=== PATIENT | female | born 1945 | race Caucasian/White ===

== ENCOUNTER → 2018-11-02 | Outpatient (CLI) | payer OTHER ==
[~2018-11-02] MED LIST: ACIDOPHILUS1 EAC2 PO; ASPI325 PO; ASPI81CH PO; ASPI81EC; ASPI81EC PO; Advair Hfa 230-12 GM; Amiodarone HCl200 MG PO; CARV3.125 PO; CEFP200 PO; CHOL10002; CHOL10002 PO; CITA20 PO; CLOP75 PO; COLCHICINE0.6 MG PO; COLCRYS0.6 MG PO; DOCU100 PO; DOFE250 PO; Durezol5 ML; ELIQUIS2.5 MG PO; ELIQUIS5 MG PO; FAMO20 PO; FISH1000 PO; FLAX PO; FLONASE ALLERG9.9 ML NS; FURO20 PO; FURO40 PO; GUAI600T33 PO; HERBAL LAXATIVE PO; HYALURONIC ACI1 EACH PO; Hair, Skin & N1 EACH PO; IBUP600 PO; Keflex500 MG PO; Kristalose20 GM PO; LOSA25 PO; METHYLFOLATE PO; METO25ER PO; NITR.4SL SL; OMEG1CAP30; OMEG1CAP30 PO; OMEP20ER PO; Oxycodone HCl5 M1; POTCHL10ER PO; POTCHL20ER PO; PRED5 PO; PROBIOTIC & AC1 EACH PO; Pred Forte1 ML RIGHTEYE; Pred Mild5 ML RIGHTEYE; Pyridium200 MG PO; ROSU5 PO; Restoril15 MG PO; SERT25 PO; SERT50 PO; STRESS B-COMPL1 EACH PO; Senna Laxative8.6 MG PO; TEMA15 PO; TIZANIDINE HCL2 MG PO; Vitamin B Comple1 EA PO; Zanaflex2 M1 PO; Zofran Odt4 MG SL; Zofran Odt8 MG SL; [UNRECOGNIZED DRUG - OTHER]; [UNRECOGNIZED DRUG - OTHER]; [UNRECOGNIZED DRUG - OTHER] PO; [UNRECOGNIZED DRUG - OTHER] PO
== END | disposition home or self-care (01) ==
LOC: LAB SHORT 18:40 → LAB 18:40
DX: R30.0 Dysuria (principal)
CPT/HCPCS: 87077; 87086; 87186

== ENCOUNTER 2019-02-13 18:47 | Emergency (ER) | payer OTHER ==
[~2019-02-13] VITALS: Ht 157.5 cm; Wt 87.5 kg
[~2019-02-13 18:47] MED LIST changes: -DOFE250 PO
[2019-02-13] MEDS ORDERED: LOSA25 PO (21:57)
[2019-02-13] MEDS ORDERED: LORA.5 PO (21:58)
[2019-02-13] MEDS ORDERED: DOFE250 PO (22:00)
[2019-02-13] MEDS ORDERED: WARF5 PO (22:00)
[2019-02-13] MEDS ORDERED: FURO40 PO (22:01)
[2019-02-13] MEDS ORDERED: POTCHL10ER PO (22:01)
[2019-02-13] MEDS ORDERED: Isosorbide Mono30 MG PO (22:02)
[2019-02-13] MEDS ORDERED: SERT25 PO (22:03)
[2019-02-13] MEDS ORDERED: Zofran8 MG PO (22:14)
[2019-02-13] MEDS ORDERED: Percocet 5-3251 EACH PO (22:14)
== END 2019-02-13 22:45 | disposition home or self-care (01) ==
LOC: ER 18:47
DX: S52.501A Unspecified fracture of the lower end of right radius, initial encounter for closed fracture (principal); I25.2 Old myocardial infarction; I50.9 Heart failure, unspecified; I48.91 Unspecified atrial fibrillation; Z88.5 Allergy status to narcotic agent; Z88.6 Allergy status to analgesic agent; Z88.8 Allergy status to other drugs, medicaments and biological substances; Z91.048 Other nonmedicinal substance allergy status; Z79.899 Other long term (current) drug therapy; Z79.52 Long term (current) use of systemic steroids; Z86.711 Personal history of pulmonary embolism; Z87.891 Personal history of nicotine dependence; W19.XXXA Unspecified fall, initial encounter
CPT/HCPCS: 25605; 73110; 76000; 96374-59; 96375-59; 96376-59; 99152; 99283-25; A9270; A9270-GY; J1170; J2405; J2704; J7030

== ENCOUNTER 2019-05-08 11:54 | Emergency (ER) | payer OTHER ==
[~2019-05-08] VITALS: Ht 160 cm; Wt 87.1 kg
[~2019-05-08 11:54] MED LIST changes: +DOFE250 PO; +Isosorbide Mono30 MG PO; +LORA.5 PO; +Percocet 5-3251 EACH PO; +WARF5 PO; +Zofran8 MG PO
[2019-05-08 13:48] LABS: BASOPHILS ABSOLUTE AUTO 0.04 K/mm3 (0.00-0.23); BASOPHILS PERCENT AUTO 1 % (0-2); EOSINOPHILS ABSOLUTE AUTO 0.13 K/mm3 (0.00-0.68); EOSINOPHILS PERCENT AUTO 2 % (0-6); Hemoglobin 12.5 g/dL (11.5-16.0); IMMATURE GRAN ABSOLUTE AUTO 0.02 K/mm3 (0.00-0.10); IMMATURE GRAN PERCENT AUTO 0 % (0-1); LYMPHOCYTES ABSOLUTE AUTO 1.48 K/mm3 (0.84-5.20); LYMPHOCYTES PERCENT AUTO 22 % (21-46); MONOCYTES ABSOLUTE AUTO 0.67 K/mm3 (0.16-1.47); MONOCYTES PERCENT AUTO 10 % (4-13); Mean Corpuscular HGB 30.8 pg (26.0-34.0); Mean Corpuscular HGB Conc 32.9 g/dL (31.5-36.5); Mean Corpuscular Volume 94 fL (80-100); Mean Platelet Volume 12.4 fL (9.1-12.4); NEUTROPHILS ABSOLUTE AUTO 4.33 K/mm3 (1.96-9.15); NEUTROPHILS PERCENT AUTO 65 % (41-73); Platelet Count 206 K/mm3 (150-400); RDW Coefficient Variation 14.4 % (11.7-14.2); RDW Standard Deviation 49.7 fL (35.1-46.3); Red Blood Cell Count 4.06 M/mm3 (3.80-5.20); White Blood Cell Count 6.67 K/mm3 (4.00-11.30)
[2019-05-08] MEDS ORDERED: Prednisone20 MG PO (13:59)
[2019-05-08] MEDS ORDERED: ALBU2.5V5 INH (13:59)
[2019-05-08 14:07] LABS: Alanine Aminotransfer (ALT/SGP 23 U/L (12-78); Albumin, Blood 3.7 g/dL (3.4-5.0); Albumin/Globulin Ratio 1.1 (0.8-1.8); Alk Phos 58 U/L (50-136); Anion Gap 8 mmol/L (6-16); Aspartate Aminotrans (AST/SGOT 21 U/L (12-37); Bilirubin, Total 0.5 mg/dL (0.1-1.0); Blood Urea Nitrogen 15 mg/dL (8-24); Bun/Creatinine Ratio 25.2 (12.0-20.0); CO2, Blood 23 mmol/L (21-32); Calcium, Blood 8.7 mg/dL (8.5-10.1); Chloride, Blood 107 mmol/L (98-108); Globulin, Blood 3.3 g/dL (2.2-4.0); Glomerular Filtration Rate >60 (60-); Glucose, Blood 118 mg/dL (70-99); Potassium, Blood 4.1 mmol/L (3.5-5.5); Sodium, Blood 138 mmol/L (136-145); Troponin I <0.015 ng/mL (0.000-0.040)
[2019-05-08 15:01] LABS: International Normalized Ratio 1.3; Prothrombin Time Results 13.5 Sec (9.7-11.5)
== END 2019-05-08 16:35 | disposition home or self-care (01) ==
LOC: ER 11:54
PROVIDERS: Emergency Medicine
DX: J44.1 Chronic obstructive pulmonary disease with (acute) exacerbation (principal); I25.2 Old myocardial infarction; I50.9 Heart failure, unspecified; I48.91 Unspecified atrial fibrillation; Z88.8 Allergy status to other drugs, medicaments and biological substances; Z88.5 Allergy status to narcotic agent; Z88.1 Allergy status to other antibiotic agents; Z79.899 Other long term (current) drug therapy; Z79.01 Long term (current) use of anticoagulants
CPT/HCPCS: 36415; 71046; 80053; 84484; 85025; 85610; 93005; 93010; 99285-25

== ENCOUNTER → 2019-05-13 | Outpatient (CLI) | payer OTHER ==
[~2019-05-13] MED LIST changes: +ALBU2.5V5 INH; +Prednisone20 MG PO
[2019-05-16 07:08] LABS: HPV 16 Negative (Negative); HPV 18 Negative (Negative); HPV OTHER HR TYPES Negative (Negative)
== END | disposition home or self-care (01) ==
LOC: LAB SHORT 17:52 → LAB 17:52
PROVIDERS: Nurse Practitioner Women's Health
DX: Z12.4 Encounter for screening for malignant neoplasm of cervix (principal); Z91.89 Other specified personal risk factors, not elsewhere classified
CPT/HCPCS: 87624; G0123

== ENCOUNTER 2019-07-05 04:40 | Emergency (ER) | payer OTHER ==
[~2019-07-05] VITALS: Ht 160 cm; Wt 87.1 kg
[2019-07-05] MEDS ORDERED: JANTOVEN PO (05:25)
[2019-07-05] MEDS ORDERED: Jantoven10 MG PO (05:25)
[2019-07-05] MEDS ORDERED: VITAMIN D-32000 UNIT PO (05:28)
[2019-07-05 06:00] LABS: International Normalized Ratio 1.62; Prothrombin Time Results 16.4 Sec (9.7-11.5)
== END 2019-07-05 05:59 | disposition home or self-care (01) ==
LOC: ER 04:40
PROVIDERS: Emergency Medicine
DX: H11.31 Conjunctival hemorrhage, right eye (principal); H11.421 Conjunctival edema, right eye; I25.2 Old myocardial infarction; I50.9 Heart failure, unspecified; I48.91 Unspecified atrial fibrillation; Z86.711 Personal history of pulmonary embolism; Z87.891 Personal history of nicotine dependence; Z88.8 Allergy status to other drugs, medicaments and biological substances; Z88.5 Allergy status to narcotic agent; Z88.1 Allergy status to other antibiotic agents; Z79.899 Other long term (current) drug therapy; Z79.01 Long term (current) use of anticoagulants
CPT/HCPCS: 85610; 99283

== ENCOUNTER 2019-08-21 12:30 | Emergency (ER) | payer OTHER ==
[~2019-08-21] VITALS: Ht 157.5 cm; Wt 89.8 kg
[~2019-08-21 12:30] MED LIST changes: +JANTOVEN PO; +Jantoven10 MG PO; +VITAMIN D-32000 UNIT PO
[2019-08-21 13:44] LABS: International Normalized Ratio 2.16; Prothrombin Time Results 22.1 Sec (9.7-11.5)
[2019-08-21 13:45] LABS: Calcium, Ionized (POC) 1.15 mmol/L (1.10-1.46); Chloride (POC) 97 mmol/L (98-108); Creatinine (POC) 0.6 mg/dL (0.6-1.0); Glucose (ISTAT POC) 96 mg/dL (70-99); Hemoglobin (POC) 14.3 g/dL (12.0-16.0); Potassium (POC) 4.1 mmol/L (3.5-5.5); Sodium (POC) 133 mmol/L (135-148); Total CO2 (POC) 26 mmol/L (21-32)
[2019-08-21] MEDS ORDERED: NEO-SYNEPHRINE15 M1 (18:38)
== END 2019-08-21 14:33 | disposition home or self-care (01) ==
LOC: ER 12:30
PROVIDERS: Emergency Medicine
DX: R04.0 Epistaxis (principal); I48.91 Unspecified atrial fibrillation; I25.2 Old myocardial infarction; I50.9 Heart failure, unspecified; Z79.01 Long term (current) use of anticoagulants; Z86.711 Personal history of pulmonary embolism; Z87.891 Personal history of nicotine dependence
CPT/HCPCS: 30901; 80047; 85014; 85610; 99283-25

== ENCOUNTER 2019-11-07 04:21 | Observation (INO) | payer OTHER ==
[~2019-11-07] VITALS: Ht 170.2 cm; Wt 88.5 kg
[~2019-11-07 04:21] MED LIST changes: +NEO-SYNEPHRINE15 M1
[2019-11-07 04:36] LABS: BASOPHILS ABSOLUTE AUTO 0.04 K/mm3 (0.00-0.23); BASOPHILS PERCENT AUTO 1 % (0-2); EOSINOPHILS ABSOLUTE AUTO 0.15 K/mm3 (0.00-0.68); EOSINOPHILS PERCENT AUTO 2 % (0-6); Hematocrit 41.9 % (33.0-51.0); Hemoglobin 13.2 g/dL (11.5-16.0); IMMATURE GRAN ABSOLUTE AUTO 0.02 K/mm3 (0.00-0.10); IMMATURE GRAN PERCENT AUTO 0 % (0-1); LYMPHOCYTES PERCENT AUTO 29 % (21-46); MONOCYTES ABSOLUTE AUTO 0.66 K/mm3 (0.16-1.47); MONOCYTES PERCENT AUTO 10 % (4-13); Mean Corpuscular HGB 29.5 pg (26.0-34.0); Mean Corpuscular HGB Conc 31.5 g/dL (31.5-36.5); Mean Corpuscular Volume 94 fL (80-100); Mean Platelet Volume 11.6 fL (9.1-12.4); NEUTROPHILS ABSOLUTE AUTO 4.09 K/mm3 (1.96-9.15); NEUTROPHILS PERCENT AUTO 59 % (41-73); Platelet Count 171 K/mm3 (150-400); RDW Coefficient Variation 13.4 % (11.7-14.2); RDW Standard Deviation 45.6 fL (35.1-46.3); Red Blood Cell Count 4.48 M/mm3 (3.80-5.20); White Blood Cell Count 6.96 K/mm3 (4.00-11.30)
[2019-11-07 04:56] LABS: Troponin I 0.061 ng/mL (0.000-0.040)
[2019-11-07 04:57] LABS: Alanine Aminotransfer (ALT/SGP 26 U/L (12-78); Albumin, Blood 3.8 g/dL (3.4-5.0); Albumin/Globulin Ratio 1.1 (0.8-1.8); Alk Phos 65 U/L (50-136); Anion Gap 7 mmol/L (6-16); Aspartate Aminotrans (AST/SGOT 25 U/L (12-37); Bilirubin, Total 0.5 mg/dL (0.1-1.0); Blood Urea Nitrogen 16 mg/dL (8-24); Bun/Creatinine Ratio 25.2 (12.0-20.0); CO2, Blood 27 mmol/L (21-32); Calcium, Blood 9.1 mg/dL (8.5-10.1); Chloride, Blood 107 mmol/L (98-108); Creatinine, Blood 0.64 mg/dL (0.40-1.00); Globulin, Blood 3.4 g/dL (2.2-4.0); Glomerular Filtration Rate >60 (60-); Glucose, Blood 98 mg/dL (70-99); Sodium, Blood 141 mmol/L (136-145); Total Protein, Blood 7.2 g/dL (6.4-8.2)
[2019-11-07] MEDS ORDERED: FUROSEMIDE40 MG PO (05:24)
[2019-11-07] MEDS ORDERED: LOSARTAN POTASS25 M2 PO (05:24)
[2019-11-07] MEDS ORDERED: DOFETILIDE250 MCG PO (05:25)
[2019-11-07] MEDS ORDERED: ISOSORBIDE MONO30 MG PO (05:25)
[2019-11-07] MEDS ORDERED: ZOLOFT50 MG PO (05:25)
[2019-11-07] MEDS ORDERED: Jantoven5 MG PO (05:25)
[2019-11-07] MEDS ORDERED: K-Dur10 MEQ (05:25)
[2019-11-07] MEDS ORDERED: NITR.4SL SL (05:26)
[2019-11-07 05:45] LABS: International Normalized Ratio 1.33
--- NOTE | 2019-11-07 06:28 | NUR ---
After receiving a call-back, I visit patient in ER Rm 3. Pateint is grieving appropriately the of her , Ed, who of a heart attack this morning. While EMT were tending to patient's , the patient started having chest pains. Patient tells me she is overwhelmed and and she cries as she recalls all that she loves about her . I listen empathically, normalize patient's experience and provide grief support, conduct a life review, pastoral herb counselor and prayer. Patient responds well and shows signs of improved peace. I will continue to remain available to patient and family.
--- NOTE | 2019-11-07 08:01 | NUR ---
SHIFT SUMMARY PT A&O; CAME FROM ER VIA STRETCHER AND SELF TRANSFERED TO BED; PT STATES SHE IS NOT CURRENTLY EXPERIENCING CHEST PAIN; NITRO BID PASTE IN PLACE; PT STATES IT DOES NOT FEEL THE SAME HER PAST DE; O2 SATS >93 ON RA; LUNG SOUNDS CLEAR; NO EDEMA NOTED; HER SPOUSE CODED AT HOME THIS AM AT 0315 AND SHE CALLED 911; HAD BY THE TIME AMBULANCE ARRIVED; SHE HERSELF WAS HAVING CHEST PAIN, AND ADDITIONAL AMBULANCE WAS CALLED FOR HER; SHE HAS NUMEROUS CONCERNS FOR SPOUSE'S ARRANGEMENTS AND CONCERNS WITH HER INSURANCE FOR HER HOSPITAL STAY; CALL LIGHT IN REACH; BED IN LOWEST POSITION; REPORT GIVEN TO DAY SHIFT RN.
--- NOTE | 2019-11-07 08:22 | NUR ---
AM NOTE... ASSUMED CARE OF PT APROX 0700, PT IS A&Ox4 AND IND/SBA IN THE ROOM. PT WAS ADMITTED FOR CHEST PAIN. PT'S LAST NIGHT AND EMS BROUGHT HER IN FOR CHEST PAIN. PT'S VS STABLE AT THIS TIME, PT C/O SLIGHT CHEST PAIN OF 2/10 AND SAID THE MORPHINE HELPED A LOT. L/S CLEAR IN THE UPPER SLIGHT COARSENESS HEARD IN THE BASES. BT PRESENT AND HYPERACTIVE ABD SOFT AND NONTENDER TO PALP. PT IS VERY TEARFUL AND ANXIOUS AT TIMES ABOUT HER PASSING. CALL LIGHT IN REACH WILL CONTINUE TO MONITOR.
--- NOTE | 2019-11-07 10:23 | NUR ---
Echocardiogram using 0.75mL of Definity contrast completed by Risa Bustos.
--- NOTE | 2019-11-07 13:20 | NUR ---
I checked back in with patient to let her know I am still in the area and available. Patient informs me that both her son from [place] and her sister from [place] were on there way to visit her. Patient tells me that she is nervous about the upcoming procedure and has her head full of all the details and fears surrounding the of her this morning. I listen empathically and provide a calming presence and companionship. Patient responds well and shows signs of a greater peace. I will continue to remain available to patient and family.
== END 2019-11-07 15:32 | disposition short-term general hospital (02) ==
LOC: ER 04:21 → PCU 04:22
PROVIDERS: Emergency Medicine; ADMIT Family Medicine
DX: I21.4 Non-ST elevation (NSTEMI) myocardial infarction (principal); I16.0 Hypertensive urgency; I48.0 Paroxysmal atrial fibrillation; I25.10 Atherosclerotic heart disease of native coronary artery without angina pectoris; Z88.1 Allergy status to other antibiotic agents; Z88.5 Allergy status to narcotic agent; Z88.8 Allergy status to other drugs, medicaments and biological substances; Z91.041 Radiographic dye allergy status; Z79.899 Other long term (current) drug therapy; Z87.891 Personal history of nicotine dependence
CPT/HCPCS: 36415; 71045; 80053; 84443; 84484; 85025; 85347; 85610; 93005; 93010; 93458; 93571; 96375; 99152; 99153; C1769; C1887; C1894; C8929; G0378; J1644; J2060; J2250; J2270; J2405; J2930; J3010; J7030; Q0163; Q9957; Q9967

== ENCOUNTER 2020-01-11 16:55 | Inpatient (IN) | payer OTHER ==
[~2020-01-11] VITALS: Ht 165.1 cm; Wt 85.4 kg
[~2020-01-11 16:55] MED LIST changes: +DOFETILIDE250 MCG PO; +FUROSEMIDE40 MG PO; +ISOSORBIDE MONO30 MG PO; +Jantoven5 MG PO; +K-Dur10 MEQ PO; +LOSARTAN POTASS25 M2 PO; +ZOLOFT50 MG PO
[2020-01-11 17:19] LABS: BASOPHILS ABSOLUTE AUTO 0.04 K/mm3 (0.00-0.23); BASOPHILS PERCENT AUTO 1 % (0-2); EOSINOPHILS ABSOLUTE AUTO 0.14 K/mm3 (0.00-0.68); EOSINOPHILS PERCENT AUTO 2 % (0-6); Hematocrit 37.6 % (33.0-51.0); Hemoglobin 12.1 g/dL (11.5-16.0); IMMATURE GRAN ABSOLUTE AUTO 0.02 K/mm3 (0.00-0.10); IMMATURE GRAN PERCENT AUTO 0 % (0-1); LYMPHOCYTES ABSOLUTE AUTO 1.68 K/mm3 (0.84-5.20); LYMPHOCYTES PERCENT AUTO 25 % (21-46); MONOCYTES ABSOLUTE AUTO 0.77 K/mm3 (0.16-1.47); MONOCYTES PERCENT AUTO 11 % (4-13); Mean Corpuscular HGB 29.8 pg (26.0-34.0); Mean Corpuscular HGB Conc 32.2 g/dL (31.5-36.5); Mean Corpuscular Volume 93 fL (80-100); Mean Platelet Volume 12.3 fL (9.1-12.4); NEUTROPHILS ABSOLUTE AUTO 4.12 K/mm3 (1.96-9.15); NEUTROPHILS PERCENT AUTO 61 % (41-73); Platelet Count 174 K/mm3 (150-400); RDW Coefficient Variation 14.6 % (11.7-14.2); Red Blood Cell Count 4.06 M/mm3 (3.80-5.20); White Blood Cell Count 6.77 K/mm3 (4.00-11.30)
[2020-01-11 17:43] LABS: International Normalized Ratio 1.6; Prothrombin Time Results 16.7 Sec (9.7-11.5)
[2020-01-11 17:46] LABS: Anion Gap 8 mmol/L (6-16); Blood Urea Nitrogen 12 mg/dL (8-24); Bun/Creatinine Ratio 16.2 (12.0-20.0); CO2, Blood 24 mmol/L (21-32); Calcium, Blood 8.8 mg/dL (8.5-10.1); Chloride, Blood 106 mmol/L (98-108); Creatinine, Blood 0.74 mg/dL (0.40-1.00); Glomerular Filtration Rate >60 (60-); Glucose, Blood 129 mg/dL (70-99); Potassium, Blood 3.7 mmol/L (3.5-5.5); Sodium, Blood 138 mmol/L (136-145); Troponin I <0.015 ng/mL (0.000-0.040)
[2020-01-11] MEDS ORDERED: PLAVIX75 MG PO (19:32)
[2020-01-11] MEDS ORDERED: ALPRAZOLAM0.5 M1 PO (19:51)
--- NOTE | 2020-01-11 22:00 | NUR ---
CARDIOVVERSION/CARDIOLOGY IN ROOM 2129: PT ARRIVED TO ROOM FROM ED ABLE TO STAND AND TRANSFER TO BED. DR DAVIDSON IN ROOM APPROX 5 MIN AFTER ARRIVAL TO DISCUSS PLAN W/ PT. PT REMAINS IN AFIB 120'S ON TELE AND C/O CHEST PRESSURE. AT THIS TIME DR DAVIDSON RECOMENDING CARDIOVERSION. PT AGREEABLE TO PROCEDURE AND ROOM SET UP FOR CARDIOVERSION. 2139: MANAGER COST, PRIMARY RN, RT, AND DR DAVIDSON IN ROOM W/ CRASH CART, AND SUCTION SET UP. PADS APPLIED TO PT AND PROCEDURE EXPLAINED. 2144: TIMEOUT TAKEN TO CHECK PT NAME AND AND CHECK MEDICATIONS AND READINESS OF STAFF. 2147: VERSED AND FENTANYL GIVEN FOR SEDATION. SEE EMAR FOR TIMES. 2149: RT PLACED PT ON 5LNC D/T SHALLOW RESP W/ SATS <88%. SATS UP TO 94% 2151: PT FULLY SEDATED, NOT AROUSABLE TO VERBAL. SHOCK DELIVERED AT 200JULES. 2153: SINUS RHYTHYM CONFIRMED ON TELE. 2199: PT WAKING TO VERBAL, NO LONGER ON NC, SATS >95% ON RA. PT AWAKE AND AOX3 AND DROWSY, REPORTS DOES NOT REMEBER CARDIOVERSION. 5: PT AOX4 ABLE TO STAND AND USE BSC W/ SBA. REPORTING CHEST PRESSURE GONE. PT NOW RESTING IN BED COMFORTABLY WITH CALL LIGHT IN REACH.
[2020-01-11] MEDS ORDERED: GENPREOPSU RIGHTEYE (22:22)
[2020-01-11] MEDS ORDERED: REFRESH CELLUV1 EACH BOTHEYES (22:25)
[2020-01-12 04:22] LABS: International Normalized Ratio 1.72; Prothrombin Time Results 17.8 Sec (9.7-11.5)
--- NOTE | 2020-01-12 05:31 | NUR ---
SHIFT SUMMARY PT AWAKE IN ROOM RESTING COMFORTABLY AT THIS TIME. PT ARRIVED FROM ED AND WAS MET BY CARDIO IN ROOM. DECISION WAS MADE TO CARDIOVERT IN ROOM WITH SOFTWOOD FALLER. SEE PREVIOUS NOTES. PT CONVERTED TO SINUS RHYTHYM, REMAINED SINUS GALDINO T/O NIGHT. PT REPORTED ALL CP GONE. PT ABLE TO STAND AND AMBULATE TO RR W/O ASSIST. RESP EVEN UNLABORED ON RA W/ SATS >92%. PT DENIED OTHER NEEDS. CALL LIGHT IN REACH.
--- NOTE | 2020-01-12 09:43 | NUR ---
Pt is hoping to go home today. Requested to wait for a bath\shower until the DR rounds.
--- NOTE | 2020-01-12 13:11 | NUR ---
[facility]HR[facility] HOME PT DISCHARGED HOME. PT AMBULATED OUT TO SISTER. REFUSED W/C. IV LEFT WRIST REMOVED WITH CANNULA INTACT. PRESSURE DRESSING APPLIED AND PRESSURE HELD. NO BLEEDING NOTED. CONTINUE POT.
== END 2020-01-12 13:11 | disposition home or self-care (01) | DRG 309 ==
LOC: ER 16:55 → PCU 16:56
PROVIDERS: Student in an Organized Health Care Education/Training Program; ADMIT Internal Medicine
DX: I48.92 Unspecified atrial flutter (principal); I50.32 Chronic diastolic (congestive) heart failure; I34.0 Nonrheumatic mitral (valve) insufficiency; I11.0 Hypertensive heart disease with heart failure; I25.10 Atherosclerotic heart disease of native coronary artery without angina pectoris; I48.0 Paroxysmal atrial fibrillation; I25.2 Old myocardial infarction; E78.5 Hyperlipidemia, unspecified; Z86.711 Personal history of pulmonary embolism; Z66 Do not resuscitate; I73.9 Peripheral vascular disease, unspecified; Z88.1 Allergy status to other antibiotic agents; Z88.5 Allergy status to narcotic agent; Z88.8 Allergy status to other drugs, medicaments and biological substances; Z79.01 Long term (current) use of anticoagulants; Z79.899 Other long term (current) drug therapy
CPT/HCPCS: 36415; 71045; 80048; 83735; 84484; 85025; 85610; 92960; 93005; 93010; 96374; 96375; 99152; 99285-25; A9270-GY; J0282; J2250; J3010; J7030

== ENCOUNTER 2020-03-04 20:23 | Inpatient (IN) | payer OTHER ==
[~2020-03-04] VITALS: Ht 157.5 cm; Wt 85.0 kg
[~2020-03-04 20:23] MED LIST changes: +ALPRAZOLAM0.5 M1 PO; +GENPREOPSU RIGHTEYE; +PLAVIX75 MG PO; -VITAMIN D-32000 UNIT PO; -ZOLOFT50 MG PO
[2020-03-04] MEDS ORDERED: AMLO5 PO (20:44)
[2020-03-04 21:01] LABS: BASOPHILS ABSOLUTE AUTO 0.04 K/mm3 (0.00-0.23); BASOPHILS PERCENT AUTO 1 % (0-2); EOSINOPHILS ABSOLUTE AUTO 0.11 K/mm3 (0.00-0.68); EOSINOPHILS PERCENT AUTO 2 % (0-6); Hematocrit 39.8 % (33.0-51.0); Hemoglobin 12.9 g/dL (11.5-16.0); IMMATURE GRAN ABSOLUTE AUTO 0.02 K/mm3 (0.00-0.10); IMMATURE GRAN PERCENT AUTO 0 % (0-1); LYMPHOCYTES ABSOLUTE AUTO 1.59 K/mm3 (0.84-5.20); LYMPHOCYTES PERCENT AUTO 23 % (21-46); MONOCYTES ABSOLUTE AUTO 0.61 K/mm3 (0.16-1.47); MONOCYTES PERCENT AUTO 9 % (4-13); Mean Corpuscular HGB 29.7 pg (26.0-34.0); Mean Corpuscular HGB Conc 32.4 g/dL (31.5-36.5); Mean Corpuscular Volume 92 fL (80-100); Mean Platelet Volume 11.7 fL (9.1-12.4); NEUTROPHILS ABSOLUTE AUTO 4.46 K/mm3 (1.96-9.15); NEUTROPHILS PERCENT AUTO 65 % (41-73); Platelet Count 192 K/mm3 (150-400); RDW Coefficient Variation 13.8 % (11.7-14.2); RDW Standard Deviation 46.9 fL (35.1-46.3); Red Blood Cell Count 4.34 M/mm3 (3.80-5.20); White Blood Cell Count 6.83 K/mm3 (4.00-11.30)
[2020-03-04 21:18] LABS: International Normalized Ratio 1.46; Prothrombin Time Results 15.3 Sec (9.7-11.5)
[2020-03-04 21:22] LABS: Alanine Aminotransfer (ALT/SGP 24 U/L (12-78); Albumin, Blood 3.9 g/dL (3.4-5.0); Albumin/Globulin Ratio 1.2 (0.8-1.8); Alk Phos 68 U/L (50-136); Anion Gap 6 mmol/L (6-16); Aspartate Aminotrans (AST/SGOT 25 U/L (12-37); Bilirubin, Total 0.6 mg/dL (0.1-1.0); Blood Urea Nitrogen 24 mg/dL (8-24); Bun/Creatinine Ratio 32.8 (12.0-20.0); CO2, Blood 25 mmol/L (21-32); Chloride, Blood 104 mmol/L (98-108); Creatinine, Blood 0.73 mg/dL (0.40-1.00); Globulin, Blood 3.3 g/dL (2.2-4.0); Glomerular Filtration Rate >60 (60-); Glucose, Blood 124 mg/dL (70-99); Potassium, Blood 3.9 mmol/L (3.5-5.5); Sodium, Blood 135 mmol/L (136-145); Total Protein, Blood 7.2 g/dL (6.4-8.2); Troponin I <0.015 ng/mL (0.000-0.040)
[2020-03-04 23:50] LABS: Magnesium, Blood 2.3 mg/dL (1.6-2.4)
[2020-03-05] MEDS ORDERED: CLOP75 PO (02:30)
[2020-03-05] MEDS ORDERED: PRED FORTE5 ML RIGHTEYE (02:30)
[2020-03-05] MEDS ORDERED: NITR.4SL SL (02:31)
[2020-03-05 05:07] LABS: BASOPHILS ABSOLUTE AUTO 0.04 K/mm3 (0.00-0.23); BASOPHILS PERCENT AUTO 1 % (0-2); EOSINOPHILS ABSOLUTE AUTO 0.11 K/mm3 (0.00-0.68); EOSINOPHILS PERCENT AUTO 2 % (0-6); Hematocrit 38.4 % (33.0-51.0); Hemoglobin 12.4 g/dL (11.5-16.0); IMMATURE GRAN ABSOLUTE AUTO 0.02 K/mm3 (0.00-0.10); IMMATURE GRAN PERCENT AUTO 0 % (0-1); LYMPHOCYTES ABSOLUTE AUTO 1.89 K/mm3 (0.84-5.20); LYMPHOCYTES PERCENT AUTO 33 % (21-46); MONOCYTES ABSOLUTE AUTO 0.58 K/mm3 (0.16-1.47); MONOCYTES PERCENT AUTO 10 % (4-13); Mean Corpuscular HGB 29.5 pg (26.0-34.0); Mean Corpuscular HGB Conc 32.3 g/dL (31.5-36.5); Mean Corpuscular Volume 91 fL (80-100); NEUTROPHILS ABSOLUTE AUTO 3.05 K/mm3 (1.96-9.15); NEUTROPHILS PERCENT AUTO 54 % (41-73); Platelet Count 173 K/mm3 (150-400); RDW Coefficient Variation 13.7 % (11.7-14.2); RDW Standard Deviation 46.5 fL (35.1-46.3); White Blood Cell Count 5.69 K/mm3 (4.00-11.30)
[2020-03-05 05:29] LABS: Alanine Aminotransfer (ALT/SGP 21 U/L (12-78); Albumin, Blood 3.5 g/dL (3.4-5.0); Albumin/Globulin Ratio 1.2 (0.8-1.8); Alk Phos 57 U/L (50-136); Anion Gap 5 mmol/L (6-16); Aspartate Aminotrans (AST/SGOT 16 U/L (12-37); Bilirubin, Total 0.5 mg/dL (0.1-1.0); Blood Urea Nitrogen 17 mg/dL (8-24); Bun/Creatinine Ratio 28.5 (12.0-20.0); CO2, Blood 25 mmol/L (21-32); CPK Creatine Kinase 76 U/L (26-193); Calcium, Blood 8.5 mg/dL (8.5-10.1); Chloride, Blood 109 mmol/L (98-108); Globulin, Blood 2.9 g/dL (2.2-4.0); Glomerular Filtration Rate >60 (60-); Glucose, Blood 103 mg/dL (70-99); Sodium, Blood 139 mmol/L (136-145); Total Protein, Blood 6.4 g/dL (6.4-8.2); Troponin I 0.133 ng/mL (0.000-0.040)
--- NOTE | 2020-03-05 05:40 | NUR ---
SHIFT SUMMARY PT WAS A NEW ADMIT DURING THE NIGHT, ARRIVING ON THE FLOOR AT 0042. SHE WAS ADMITTED FOR CHEST PAIN, AND WAS CARDIOVERTED FROM AFIB WITH RVR TO SINUS BRADYCARDIA. PT HAS BEEN SB IN THE 50S SINCE ADMISSION TO THE FLOOR, PER TELE MANAGER PROJECT. VITAL SIGNS OTHERWISE STABLE. THIS RN ATTEMPTED TO INFUSE IV K+, BUT PT WAS UNABLE TO TOLERATE INFUSION AND BEGAN REPORTING CHEST PAIN. THE IV WAS DC'D AT THAT TIME AND HOSPITALIST DR ANDREA INFORMED. HOSPITALIST ORDERED THE SAME DOSE OF PO K+, WHICH PT WAS ABLE TO TAKE. PT REPORTED PAIN WAS RELIEVED WITH THE K+ DC'D. NO OTHER COMPLAINTS OF CHEST PAIN, NAUSEA OR SOB DURING THE NIGHT. PT IS ON A CONTINUOUS HEPARIN DRIP, CURRENTLY AT 13 U/KG/HR OR 16.9 ML/HR. PT IS ALSO RECEIVING NS @ 75 ML/HR X 1 BAG. NO OTHER ACUTE CHANGES IN PT CONDITION NOTED. WILL CONTINUE TO MONITOR AND TREAT PER EMAR UNTIL HAND OFF TO DAY SHIFT RN.
[2020-03-05 14:06] LABS: Troponin I 0.059 ng/mL (0.000-0.040)
--- NOTE | 2020-03-05 16:58 | NUR ---
SHIFT SUMMARY PT WAS SEEN BY DR. CAZARES THIS MORNING WITH HIM REQUESTING HEPARIN TO BE TURNED OFF FOR AN ANGIOGRAM THIS AFTERNOON. MADE NPO AT THE TIME PER HIS ORDER WELL. FRIEND AT BEDSIDE THIS AFTERNOON. CALLED [facility] ASKING FOR UPDATE OF WHEN PROCEDURE TO BE COMPLETED AND WAS INFORMED IT MAY BE TOMORROW RATHER THAN TODAY AND I WOULD BE KEPT INFORMED. PT AWARE OF POTENTIAL DELAY. HAS BEEN TEARFUL AT TIMES TODAY WITH CURRENT PERSONAL HEALTH EVENTS.
[2020-03-06 02:38] LABS: Albumin, Blood 3.4 g/dL (3.4-5.0); Anion Gap 5 mmol/L (6-16); Blood Urea Nitrogen 11 mg/dL (8-24); CO2, Blood 26 mmol/L (21-32); Calcium, Blood 8.7 mg/dL (8.5-10.1); Chloride, Blood 109 mmol/L (98-108); Creatinine, Blood 0.58 mg/dL (0.40-1.00); Glomerular Filtration Rate >60 (60-); Glucose, Blood 95 mg/dL (70-99); Phosphorus, Blood 3.9 mg/dL (2.5-4.9); Potassium, Blood 3.8 mmol/L (3.5-5.5); Sodium, Blood 140 mmol/L (136-145)
--- NOTE | 2020-03-06 05:55 | NUR ---
SHIFT SUMMARY PT IS A 74 Y/O FEMALE, ADMITTED FOR PAROXYSMAL AFIB. SHE IS A&O X 4, ABLE TO AMBULATE INDEPENDENTLY. PT WAS CONVERTED FROM AFIB WITH RVR IN THE ED, AND HAS BEEN IN SB/NSR SINCE PER TELE PRODUCE RUNNER. VITAL SIGNS STABLE. PT DENIED ANY COMPLAINTS OF CHEST PAIN, NAUSEA OR SOB. SHE IS ON A CONTINUOUS HEPARIN DRIP, CURRENTLY AT 13 U/KG/HR OR 16.9 ML/HR. PT HAS BEEN NPO SINCE MIDNIGHT IN PREP FOR AN ANGIOGRAM TODAY. NO OTHER ACUTE CHANGES IN PT CONDITION NOTED. WILL CONTINUE TO MONITOR AND TREAT PER EMAR UNTIL HAND OFF TO DAY SHIFT RN.
--- NOTE | 2020-03-06 15:18 | NUR ---
1330-RECEIVED THIS PT FROM THE LIP OF SHANK CUTTER. PT HAS TR BAND INFLATED WITH 11 CC R WRIST. R GROIN ACCESS SITE HAS A SHEATH IN PLACE. HAS A SLIGHT BLEEDING NOTED. SOFT PALPABLE GROIN. ITERATED PT RADIAL AND GROIN PRECAUTION. AFEBRILE. PATIENT COMPLAINTS OF CHEST AND JAW PAIN 10/21. R WRIST ACCESS SITE PULSE IS PALPABLE BUT BRUISING NOTED. CLEAR BREATH SOUNDS. PT IS BRADYCARDIC. 1425-DR. FOSTER CALLED BACK, UPDATED HER OF PT'S STATUS. ORDERS RECEIVED. 1531-PT IS STILL EATING LUNCH. NO CHANGES NOTED IN BOTH ACCESS SITES. STILL BRUISING NOTED IN THE TR BAND, R GROIN SLIGHT OOZE FROM SITE BUT HAS NOT PROGRESSED SINCE INITIAL ASSESSMENT. WILL DO ANOTHER PTT AT 1730.
--- NOTE | 2020-03-06 17:33 | NUR ---
SHIFT SUMMARY: SHEATH STILL IN PLACE. RADIAL TR BAND STILL INFLATED. NO CHANGES NOTED IN BOTH ACCESS SITES. AWAITING FOR PTT RESULTS.
--- NOTE | 2020-03-06 17:42 | NUR ---
SPOKE WITH DR. FOSTER, INFORMED HER PATIENT WANTED TO TALK TO HER. INFORMED HER TOO THAT SHEATH AND TR BAND STILL IN PLACE SINCE PTT IS OVER 134. WILL RECHECK PTT SOON.
--- NOTE | 2020-03-06 18:47 | NUR ---
DR. FOSTER AT BEDSIDE TALKING TO THE PATIENT
--- NOTE | 2020-03-06 19:21 | NUR ---
ASSUMED CARE OF PATIENT. PTT 36.1. TR BAND TO RIGHT WRIST IN PLACE WITH 11CC OF AIR IN BAND; FINGERS WARM WITH GOOD CAP REFILL. ARTERIAL SHEATH TO RIGHT FEMORAL IN PLACE WITH TEGADERM DRESSING; STRIKETHRU NOTED; GROIN SOFT; PALPABLE PEDALS; ABOVE ASSESSMENT PERFORMED WITH OFFGOING RN.
--- NOTE | 2020-03-06 20:15 | NUR ---
1928: TR BAND TO RIGHT WRIST; CAP REFILL < 3 SECONDS; HAND WARM. 2 CC AIR REMOVED. 1954: RIGHT WRIST SITE WNL; 3 CC AIR REMOVED. 2004: RIGHT WRIST SITE WNL; 3 CC AIR REMOVED. 2014: RIGHT WRIST SITE WNL; REMAINING 3 CC AIR REMOVED. TR BAND REMAINS IN PLACE FOR ONE HOUR.
[2020-03-07 03:25] LABS: Hematocrit 37.2 % (33.0-51.0); Hemoglobin 11.9 g/dL (11.5-16.0); Mean Corpuscular HGB 29.5 pg (26.0-34.0); Mean Corpuscular Volume 92 fL (80-100); Mean Platelet Volume 11.6 fL (9.1-12.4); Platelet Count 164 K/mm3 (150-400); RDW Coefficient Variation 13.8 % (11.7-14.2); Red Blood Cell Count 4.04 M/mm3 (3.80-5.20); White Blood Cell Count 8.57 K/mm3 (4.00-11.30)
[2020-03-07 03:44] LABS: Albumin, Blood 3.3 g/dL (3.4-5.0); Anion Gap 5 mmol/L (6-16); Blood Urea Nitrogen 16 mg/dL (8-24); CO2, Blood 25 mmol/L (21-32); Calcium, Blood 8.6 mg/dL (8.5-10.1); Chloride, Blood 108 mmol/L (98-108); Creatinine, Blood 0.62 mg/dL (0.40-1.00); Glomerular Filtration Rate >60 (60-); Glucose, Blood 96 mg/dL (70-99); Phosphorus, Blood 3.7 mg/dL (2.5-4.9); Potassium, Blood 3.7 mmol/L (3.5-5.5); Sodium, Blood 138 mmol/L (136-145)
--- NOTE | 2020-03-07 06:13 | NUR ---
SHIFT SUMMARY: PATIENT'S FEMORAL ARTERIAL SHEATH AND TR BAND REMOVED BY 2014; BOTH RIGHT WRIST AND RIGHT GROIN SITES SOFT WITH NO HEMATOMA NOTED AND DRESSINGS D/I. PATIENT SLEPT MOST OF THE NIGHT. NO C/O CHEST PAIN. PATIENT UP TO BSC TWO TIMES TO VOID, STEADY ON HER FEET.
--- NOTE | 2020-03-07 07:25 | NUR ---
ASSUMED CARE: PT RESTING IN BED AT THIS TIME. TR BAND OFF AND SHEATH OUT. RIGHT WRIST WITH SLIGHT BRUISING NOTED THAT SHIP CEILER REPORTS UNCHANGED. RIGHT GROIN WITH NO BLEEDING OR SIGN OF HEMATOMA AT THIS TIME. PT ASKING IF SHE IS GOING TO GO HOME TODAY. AWAITING DOCTORS.
--- NOTE | 2020-03-07 12:56 | NUR ---
SHEELA CARBAJAL AND MEKA CAME TO SEE PT. OK FOR DC WITH PLAVIX AND COUMADIN. COUMADIN CALLED INTO [facility] PER PT'S REQUEST. INSTRUCTED PT TO FOLLOW UP WITH PCP AND CARDIOLOGY AND TO CALL OFFICES ON MONDAY FOR APPOINTMENTS. DRESSINGS TO RIGHT WRIST AND RIGHT GROIN CHANGED PRIOR TO DC. SITES WITH SOME BRUISING BUT NO BLEEDING OR SIGNS OF HEMATOMA. PT DENIED FURTHER NEEDS OR CONCERNS. ESCORTED OUT VIA WHEELCHAIR BY HOSPITAL STAFF.
[2020-04-02] MEDS ORDERED: Vitamin D2000 UNIT PO (20:40)
[2020-04-02] MEDS ORDERED: ARTIFICIAL TEAR15 M2 BOTHEYES (20:40)
[2020-04-02] MEDS ORDERED: MAGNESIUM OXID500 MG PO (20:41)
[2020-04-02] MEDS ORDERED: [UNRECOGNIZED DRUG - OTHER] PO (22:13)
== END 2020-03-07 12:40 | disposition home or self-care (01) | DRG 247 ==
LOC: ER 20:23 → MEDS 20:24 → PCU 03-05 16:22 → MEDS 03-05 16:27 → PCU 03-06 12:05 → ICUW 03-06 13:05
PROVIDERS: Emergency Medicine; Internal Medicine; ADMIT Internal Medicine
PROC: 027034Z Dilation of Coronary Artery, One Artery with Drug-eluting Intraluminal Device, Percutaneous Approach (ICD-10-PCS; principal; 2020-03-06)
PROC: 02703ZZ Dilation of Coronary Artery, One Artery, Percutaneous Approach (ICD-10-PCS; 2020-03-06)
PROC: B241ZZ3 Ultrasonography of Multiple Coronary Arteries, Intravascular (ICD-10-PCS; 2020-03-06)
DX: I21.4 Non-ST elevation (NSTEMI) myocardial infarction (principal); I50.32 Chronic diastolic (congestive) heart failure; I48.92 Unspecified atrial flutter; I48.0 Paroxysmal atrial fibrillation; Z79.01 Long term (current) use of anticoagulants; I25.10 Atherosclerotic heart disease of native coronary artery without angina pectoris; I25.2 Old myocardial infarction; E78.5 Hyperlipidemia, unspecified; K21.9 Gastro-esophageal reflux disease without esophagitis; I27.20 Pulmonary hypertension, unspecified; I07.1 Rheumatic tricuspid insufficiency; I11.0 Hypertensive heart disease with heart failure; Z88.8 Allergy status to other drugs, medicaments and biological substances; I73.9 Peripheral vascular disease, unspecified
CPT/HCPCS: 36415; 71045; 76937; 80053; 80069; 82550; 83735; 83880; 84484; 85025; 85027; 85347; 85610; 85730; 92960; 92978; 93005; 93010; 93458; 96374-59; 99152; 99153; 99285-25; A9270; A9270-GY; C1725; C1753; C1769; C1874; C1887; C1894; C9600; G0278; G0378; J0360; J1200; J1644; J1720; J2250; J2704; J3010; J3480; J7030; Q0163; Q9967

== ENCOUNTER 2020-04-10 23:08 | Inpatient (IN) | payer OTHER ==
[~2020-04-10] VITALS: Ht 157.5 cm; Wt 87.5 kg
[~2020-04-10 23:08] MED LIST changes: +AMLO5 PO; +ARTIFICIAL TEAR15 M2 BOTHEYES; -K-Dur10 MEQ PO; +MAGNESIUM OXID500 MG PO; +POTA10T PO; +PRED FORTE5 ML RIGHTEYE; +Vitamin D2000 UNIT PO; +[UNRECOGNIZED DRUG - OTHER] PO
[2020-04-10 23:40] LABS: Calcium, Ionized (POC) 1.21 mmol/L (1.10-1.46); Chloride (POC) 103 mmol/L (98-108); Creatinine (POC) 0.8 mg/dL (0.6-1.0); Glucose (ISTAT POC) 109 mg/dL (70-99); Hemoglobin (POC) 12.9 g/dL (12.0-16.0); Potassium (POC) 3.9 mmol/L (3.5-5.5); Sodium (POC) 137 mmol/L (135-148); Total CO2 (POC) 23 mmol/L (21-32)
[2020-04-10 23:44] LABS: BASOPHILS ABSOLUTE AUTO 0.04 K/mm3 (0.00-0.23); BASOPHILS PERCENT AUTO 1 % (0-2); EOSINOPHILS ABSOLUTE AUTO 0.17 K/mm3 (0.00-0.68); EOSINOPHILS PERCENT AUTO 2 % (0-6); Hematocrit 38.3 % (33.0-51.0); Hemoglobin 12.2 g/dL (11.5-16.0); IMMATURE GRAN ABSOLUTE AUTO 0.03 K/mm3 (0.00-0.10); IMMATURE GRAN PERCENT AUTO 0 % (0-1); LYMPHOCYTES ABSOLUTE AUTO 1.89 K/mm3 (0.84-5.20); LYMPHOCYTES PERCENT AUTO 24 % (21-46); MONOCYTES ABSOLUTE AUTO 0.85 K/mm3 (0.16-1.47); MONOCYTES PERCENT AUTO 11 % (4-13); Mean Corpuscular HGB 29.8 pg (26.0-34.0); Mean Corpuscular HGB Conc 31.9 g/dL (31.5-36.5); Mean Corpuscular Volume 93 fL (80-100); NEUTROPHILS PERCENT AUTO 62 % (41-73); Platelet Count 172 K/mm3 (150-400); RDW Coefficient Variation 14.6 % (11.7-14.2); RDW Standard Deviation 50.1 fL (35.1-46.3); White Blood Cell Count 7.88 K/mm3 (4.00-11.30)
[2020-04-11 00:04] LABS: Alanine Aminotransfer (ALT/SGP 27 U/L (12-78); Albumin, Blood 3.9 g/dL (3.4-5.0); Albumin/Globulin Ratio 1.1 (0.8-1.8); Alk Phos 68 U/L (50-136); Anion Gap 7 mmol/L (6-16); Aspartate Aminotrans (AST/SGOT 19 U/L (12-37); Bilirubin, Total 0.5 mg/dL (0.1-1.0); Blood Urea Nitrogen 26 mg/dL (8-24); Bun/Creatinine Ratio 38.2 (12.0-20.0); CO2, Blood 24 mmol/L (21-32); Calcium, Blood 9.4 mg/dL (8.5-10.1); Chloride, Blood 106 mmol/L (98-108); Creatinine, Blood 0.68 mg/dL (0.40-1.00); Globulin, Blood 3.6 g/dL (2.2-4.0); Glomerular Filtration Rate >60 (60-); Glucose, Blood 105 mg/dL (70-99); Potassium, Blood 3.9 mmol/L (3.5-5.5); Sodium, Blood 137 mmol/L (136-145); Total Protein, Blood 7.5 g/dL (6.4-8.2); Troponin I <0.015 ng/mL (0.000-0.040)
[2020-04-11 00:20] LABS: International Normalized Ratio 1.91; Prothrombin Time Results 19.7 Sec (9.7-11.5)
--- NOTE | 2020-04-11 01:35 | NUR ---
PT ARRIVES TO ICU 4 VIA BED FROM FRONT OFFICE ASSISTANT, SHE IS NOTED SEDATED WITH PROPOFOL AT 30 MCG/KG/MIN TO RIGHT HAND IV, SALINE IS RUNNING AT TKO TO LEFT FOREARM IV. RT AT BEDSIDE FOR VENT MANAGEMENT, DR WAN ARRIVES TO ROOM DURING ASSESSMENT AND DECREASES FIO2 TO 30%, PT SATS MID TO UPPER 90S, VENT SETTINGS AC 16, TV 450, PEEP 5, 7.5 ETT NOTED AT 24 CM AT PT GUMS, LUNGS CLEAR WITH DIM BASES BILAT. SINUS GALDINO ON ARRIVAL WITH BBB, RATE HIGH 50S, PRESSURE 120 SYSTOLIC, MAP MAINTAINED, OCCASIONAL PVCS AND PJCS ARE NOTED, SKIN IS COLD, TEMP 95.9, WARM BLANKETS APPLIED, PULSES ARE FAINT, CAP REFILL IS 3 SECONDS X 4 EXTREMITIES, NO EDEMA IS NOTED. ABD SOFT, NONTENDER TO PALP, HYPOACTIVE BOWEL TONES, OG IN PLACE CLAMPED ON ARRIVAL. JACOB IN PLACE DRAINING CLEAR YELLOW URINE TO GRAVITY. TR BAND TO RIGHT ULNAR ACCESS SITE NOTED, SITE WITHOUT EVIDENCE OF ACTIVE BLEEDING, NO SWELLING OR BRUISING.
--- NOTE | 2020-04-11 03:45 | NUR ---
STARTED TR BAND DEFLATION, 1 ML REMOVED FROM TR BAND, SITE REMAINS STABLE.
--- NOTE | 2020-04-11 06:55 | NUR ---
TR BAND DEFLATION COMPLETE, SITE REMAINS STABLE, WILL MONITOR.
--- NOTE | 2020-04-11 07:00 | NUR ---
PT NEW ADMIT THIS SHIFT POST V-FIB CARDIAC ARREST IN ER. SHE RESPONDS TO VERBAL STIMULI, ANSWERS YES/NO QUESTIONS APPROPRIATELY, WRITES OUT QUESTIONS SUCH "CALL MY FRIEND" NODS YES WHEN ASKED IF SHE INTENDS HER FRIEND EDWARD SEQUEIRA AND SHE NODS HER HEAD YES. MEDICATED WITH FENTANYL X 2 FOR PAIN. CONTINUES INTUBATED AND SEDATED, SATS MAINTAINING WITHOUT CHANGES TO VENT, RED SECRETIONS ARE SUCTIONED FROM ETT THIS SHIFT, PT TOLERATES WELL. PT HAS BEEN NOTED IN SINUS RHYTHM, PACS, PVCS, PJCS, AND 25 BEAT RUN OF V-TACH HAVE BEEN NOTED, PT HEART RATE RANGES FROM LOW 40S TO 70-80S, LEVOPHED WAS STARTED FOR HEART RATE OF 42 WITH HYPOTENSIVE SYSTOLIC 70S AND MAP OF 40S AFTER NORMAL SALINE FLUID BOLUSES ADMIN, PRESSURES HAVE BEEN LABILE AND RATE DEPENDENT WITH RAPID INCREASE FROM HYPOTENSION TO SBP 150S WITH RATE INCREASE TO 80S. SHE DOES ANSWER YES WHEN ASKED IF SHE IS STARTING TO FEEL WARM, LAST TEMP 96.8 WHICH IS IMPROVED FROM 95.9 ON ARRIVAL FROM PROTOTYPE DEICER ASSEMBLER.
[2020-04-11 07:02] LABS: International Normalized Ratio 2.13; Prothrombin Time Results 21.8 Sec (9.7-11.5)
--- NOTE | 2020-04-11 07:05 | NUR ---
TR BAND REVIEWED WITH ONCOMING RN, SOME OOZING NOTED, 3 ML AIR REINFLATED.
[2020-04-11 07:06] LABS: BASOPHILS ABSOLUTE AUTO 0.02 K/mm3 (0.00-0.23); BASOPHILS PERCENT AUTO 0 % (0-2); EOSINOPHILS ABSOLUTE AUTO 0.04 K/mm3 (0.00-0.68); EOSINOPHILS PERCENT AUTO 1 % (0-6); Hematocrit 32.4 % (33.0-51.0); Hemoglobin 10.5 g/dL (11.5-16.0); IMMATURE GRAN ABSOLUTE AUTO 0.02 K/mm3 (0.00-0.10); IMMATURE GRAN PERCENT AUTO 0 % (0-1); LYMPHOCYTES ABSOLUTE AUTO 1.17 K/mm3 (0.84-5.20); LYMPHOCYTES PERCENT AUTO 19 % (21-46); MONOCYTES ABSOLUTE AUTO 0.68 K/mm3 (0.16-1.47); MONOCYTES PERCENT AUTO 11 % (4-13); Mean Corpuscular HGB 30.1 pg (26.0-34.0); Mean Corpuscular HGB Conc 32.4 g/dL (31.5-36.5); Mean Corpuscular Volume 93 fL (80-100); Mean Platelet Volume 12.2 fL (9.1-12.4); NEUTROPHILS ABSOLUTE AUTO 4.35 K/mm3 (1.96-9.15); NEUTROPHILS PERCENT AUTO 69 % (41-73); Platelet Count 162 K/mm3 (150-400); RDW Coefficient Variation 14.6 % (11.7-14.2); RDW Standard Deviation 49.2 fL (35.1-46.3); Red Blood Cell Count 3.49 M/mm3 (3.80-5.20); White Blood Cell Count 6.28 K/mm3 (4.00-11.30)
[2020-04-11 07:14] LABS: Alanine Aminotransfer (ALT/SGP 190 U/L (12-78); Albumin, Blood 3.1 g/dL (3.4-5.0); Albumin/Globulin Ratio 1.1 (0.8-1.8); Alk Phos 63 U/L (50-136); Anion Gap 8 mmol/L (6-16); Aspartate Aminotrans (AST/SGOT 209 U/L (12-37); Bilirubin, Total 0.7 mg/dL (0.1-1.0); Blood Urea Nitrogen 21 mg/dL (8-24); Bun/Creatinine Ratio 35.6 (12.0-20.0); CO2, Blood 22 mmol/L (21-32); Calcium, Blood 8.4 mg/dL (8.5-10.1); Chloride, Blood 110 mmol/L (98-108); Creatinine, Blood 0.59 mg/dL (0.40-1.00); Globulin, Blood 2.8 g/dL (2.2-4.0); Glomerular Filtration Rate >60 (60-); Glucose, Blood 103 mg/dL (70-99); Magnesium, Blood 2.1 mg/dL (1.6-2.4); Potassium, Blood 3.7 mmol/L (3.5-5.5); Sodium, Blood 140 mmol/L (136-145); Total Protein, Blood 5.9 g/dL (6.4-8.2)
--- NOTE | 2020-04-11 08:34 | NUR ---
PT SEDATED ON PROPOFOL AT 30MCG FOR [facility] VENT S/P CARDIAC ARREST AND ANGIOGRAM WITH ONE STENT PLACEMENT. PT OPENS EYES TO VOICE AND NODS HEAD APPROPRIATELY. PT INDICATES THAT SHE HAS MODERATE PAIN TO CHEST, THROAT, AND BACK. LEVOPHED AT 4MCG TO R AV; IV PATENT. LEVOPHED DECREASED TO 3MCG; BP'S VERY LABILE. BP LABILE DEPENDING ON HEART RATE AND RYTHYM. PT SINUS TO GALDINO W A LOT OF ECTOPY; PVC'S, PAC'S, MULTI-FOCAL P WAVES, ESCAPE BEATS, OCC JUNCTIONAL. DR HAMMER IN TO SEE PT. ANITA DC'D. COUMADIN ORDERED BUT TO BE HELD DR HAMMER MAY TAKE PT BACK TO SUPERINTENDENT DIVISION TOMORROW. PINK/RED SPUTUM SX'D FROM LUNGS, ALTHOUGH LUNGS ARE RELATIVELY CLEAR, SATS >95% ON 30%FIO2. TR BAND TO R WRIST, NOCT RN HAD LET BALLOON OUT COMPLETELY, OOZING NOTED, 3CC AIR PLACED. AIR LET OUT AGAIN AT 0830, NO ADDITIONAL OOZING NOTED.
--- NOTE | 2020-04-11 09:27 | NUR ---
TR BAND REMOVED, WRIST GENTLY CLEANED, CLEAR OPSITE PLACED. NO OOZING TO SITE; CIRC WNL. LEVOPHED INCREASED TO 4MCG FOR MAP<60. PT HAD 22BEAT RUN VT; DR HAMMER NOTIFIED; K+ 20MEQ ORDERED.
--- NOTE | 2020-04-11 10:20 | NUR ---
DR HAMMER AT BEDSIDE. TROPONIN OF 6.[address] HAMMER. ECHO COMPLETE, EKG ORDERED.
--- NOTE | 2020-04-11 12:01 | NUR ---
PICC PLACED W/O DIFFICULTY TO SAGAR. DR HAMMER SPOKE W PT'S KRYSTA SEQUEIRA; CONSENT FOR ANGIOGRAM TOMORROW WAS OBTAINED, PT WILL REMAIN FULL CODE FROM NOW UNTIL 24HRS FOLLOWING ANGIOGRAM TOMORROW.
--- NOTE | 2020-04-11 14:02 | NUR ---
Echocardiogram performed.
--- NOTE | 2020-04-11 17:31 | NUR ---
PT HAS BEEN RESTING WELL THIS SHIFT W PROPOFOL AT 40MCG FOR MECH VENT. PT AWAKENS TO LIGHT VOICE. PT C/O PAIN TO THROAT; FENT GIVEN W GOOD EFFECT. BP'S HAVE BEEN LESS LABILE HEART RYTHYM HAS BEEN MORE REGULAR W LESS ECTOPY. LEVOPHED REMAINS AT 3MCG.
--- NOTE | 2020-04-11 19:00 | NUR ---
ASSUMED CARE OF PATIENT. RECEIVED REPORT FROM OFFGOING RN. PATIENT INTUBATED ON VENTILATOR WITH PROPOFOL INFUSING FOR SEDATION; BILATERAL WRIST RESTRAINTS IN PLACE. LEVOPHED DRIP INFUSING AT 2MCG/MIN WITH MAP >65. JACOB CATH PATENT DRAINING CLEAR, YELLOW URINE. CONTINUE POC.
--- NOTE | 2020-04-12 06:30 | NUR ---
SHIFT SUMMARY: PATIENT REMAINS INTUBATED WITH NO VENTILATOR CHANGES AND SEDATED WITH PROPOFOL AT 40MCG/KG/MIN; PATIENT GIVEN FENTANYL 50MCG IV X 1 DOSE FOR GENERALIZED PAIN. AFEBRILE. VSS. RHYTHM: SINUS RHYTHM/SINUS GALDINO WITH OCC. PAC'S. BILATERAL WRIST RESTRAINTS IN PLACE TO PREVENT PULLING OF TUBES. JACOB CATH PATENT DRAINING ADEQUATE AMOUNTS CLEAR, YELLOW URINE. PICC LINE TO LEFT UPPER ARM WITH NS INFUSING AT 75CC/HR; PATIENT WEANED OFF LEVOPHED BY 0500 WITH MAP >65. PLAN IS FOR PATIENT TO RETURN TO MANAGER PROCUREMENT FOR ADDITIONAL PROCEDURE TODAY. AWAITING DAY SHIFT RN FOR HANDOFF.
[2020-04-12 09:02] LABS: BASOPHILS ABSOLUTE AUTO 0.02 K/mm3 (0.00-0.23); BASOPHILS PERCENT AUTO 0 % (0-2); EOSINOPHILS PERCENT AUTO 3 % (0-6); Hematocrit 32.5 % (33.0-51.0); Hemoglobin 10.3 g/dL (11.5-16.0); IMMATURE GRAN ABSOLUTE AUTO 0.02 K/mm3 (0.00-0.10); IMMATURE GRAN PERCENT AUTO 0 % (0-1); LYMPHOCYTES ABSOLUTE AUTO 0.74 K/mm3 (0.84-5.20); LYMPHOCYTES PERCENT AUTO 10 % (21-46); MONOCYTES ABSOLUTE AUTO 0.78 K/mm3 (0.16-1.47); MONOCYTES PERCENT AUTO 10 % (4-13); Mean Corpuscular HGB 29.9 pg (26.0-34.0); Mean Corpuscular HGB Conc 31.7 g/dL (31.5-36.5); Mean Corpuscular Volume 94 fL (80-100); Mean Platelet Volume 11.8 fL (9.1-12.4); NEUTROPHILS ABSOLUTE AUTO 5.79 K/mm3 (1.96-9.15); NEUTROPHILS PERCENT AUTO 77 % (41-73); Platelet Count 141 K/mm3 (150-400); RDW Coefficient Variation 14.8 % (11.7-14.2); RDW Standard Deviation 51.3 fL (35.1-46.3); Red Blood Cell Count 3.45 M/mm3 (3.80-5.20); White Blood Cell Count 7.55 K/mm3 (4.00-11.30)
[2020-04-12 09:16] LABS: International Normalized Ratio 3.09
[2020-04-12 09:25] LABS: Magnesium, Blood 1.9 mg/dL (1.6-2.4)
[2020-04-12 09:26] LABS: Alanine Aminotransfer (ALT/SGP 123 U/L (12-78); Albumin, Blood 2.7 g/dL (3.4-5.0); Alk Phos 57 U/L (50-136); Anion Gap 5 mmol/L (6-16); Aspartate Aminotrans (AST/SGOT 133 U/L (12-37); Bilirubin, Total 0.6 mg/dL (0.1-1.0); Blood Urea Nitrogen 8 mg/dL (8-24); Bun/Creatinine Ratio 16.8 (12.0-20.0); CO2, Blood 23 mmol/L (21-32); Calcium, Blood 7.6 mg/dL (8.5-10.1); Chloride, Blood 114 mmol/L (98-108); Creatinine, Blood 0.48 mg/dL (0.40-1.00); Globulin, Blood 2.7 g/dL (2.2-4.0); Glomerular Filtration Rate >60 (60-); Glucose, Blood 89 mg/dL (70-99); Potassium, Blood 3.7 mmol/L (3.5-5.5); Sodium, Blood 142 mmol/L (136-145); Total Protein, Blood 5.4 g/dL (6.4-8.2)
--- NOTE | 2020-04-12 09:44 | NUR ---
[place] of Care: Care assumed at 0700hr. Patient intubated and sedated with propofol at 40mcg/kg/min. Patient open eyes spontaneously and to verbal stimuli. Able to nod head yes/no, and move all extremities on command. Patient responded "yes" to pain (lower back), x1 dose of prn fentanyl given with good effect. Vent to AC 16/400/5/30%, spO2-96-98%, tolerating vent without difficulty. BP and HR stable, levophed gtt stopped last NOC shift. PICC line to lt upper arm patent and intact, infusing without difficulty. Peripheral IV to rt hand patent and intact, SL. Ulnar artery access site to rt wrist wnl, no s/s of bleeding/hematoma, distal limb temp and color wnl. Dr. Palm to room this morning, received lab orders for PT/INR, CMP, and CBC. INR levels resulted over 3.0. Then received call from senior laboratory technician RN, that Dr. Palm plans to wait until tomorrow (r/t increased INR) morning to take patient to senior laboratory technician for coronary intervention.
--- NOTE | 2020-04-12 11:21 | NUR ---
Extubation: At 0945hr, received instructions per Dr. Issa to turn off propofol gtt, in anticipation for extubation. Dr. Issa also changed vent settings from AC to PS of 10/5/30%. Patient quickly woke after turning off propofol gtt, able to follow commands and remain calm/cooperative. Tolerated PS without difficulty, RT Flako then decreased settings to 5/5/30%. Patient maintained adequate tidal volumes and respiratory rate. Then received order per Dr. Issa to extubate patient. Patient extubated at 1115hr with this RN and RT Flako. Extubated without difficulty, spO2 98% on 2L/NC. Calm and cooperative, no s/s of respiratory distress. Will continue to monitor.
--- NOTE | 2020-04-12 11:22 | NUR ---
PT EXTUBATED AT 1115 WITHOUT ISSUE, HEAVY ORAL SX AND ETT SX WITH LAVAGE PRIOR TO EXTUBATION, PT PLACED ON 2L NC FOR NOW TO TITRATE DOWN TOLERATED. NO DISTRESS NOTED POST EXTUBATION.
--- NOTE | 2020-04-12 18:10 | NUR ---
Shift Summary: See previous note r/t extubation this morning. Patient continued to have no s/s of respiratory distress or discomfort throughout remainder of shift. SpO2-92-95% on RA while awake, but would occasionally decrease to 87-88% while sleeping. Placed on NC a 1LPM, effective to keep spO2 greater than 92%. Patient c/o pain to chest/sternum 6-02/20, effectively managed with prn fentanyl. Also received order for prn PO tylenol and oxycodone, but these medication held for concern of patient's ability to swallow. Patient able to swallow thin liquids without difficulty throughout afternoon. Then received order for mechanical soft diet, per Dr. Issa. Patient then attempted to swallow jello and ground chicken/gravy, but c/o that "it gets stuck in my throat, will not go down". No coughing or signs of aspiration of foods noted, but further intake of food held, patient agreeable. Plan to inform NOC shift RN, request of ST evaluation tomorrow. Patient calm and cooperative with staff, makes needs known. VS remain stable throughout shift. Will continue to monitor until report to NOC shift RN.
--- NOTE | 2020-04-12 19:25 | NUR ---
1924: PATIENT CALLED C/O MID-STERNAL CHEST PAIN, JAW PAIN, AND PAIN RADIATING DOWN BOTH ARMS RATING 8/10; PATIENT PALE, DIAPHORETIC, CLAMMY. PATIENT GIVEN ONE NITRO SL AND EKG OBTAINED. DR. HAMMER CALLED. O2 SATS DOWN TO 88% ON OXYGEN VIA N/C AT 4L/MIN; OXYGEN INCREASED TO 12L/MIN VIA NRB. 1929: PATIENT C/O NAUSEA; GIVEN ZOFRAN 4MG IVP. LABS DRAWN. 1939: DR. HAMMER AT BEDSIDE. PATIENT RATES CHEST PAIN 5/10; PATIENT STILL DIAPHORETIC, LESS PALE; STATES SHE IS FEELING A LITTLE BETTER. ADDITIONAL LABS DRAWN. SECOND EKG OBTAINED. PATIENT COUGHING UP SMALL AMOUNT OF BLOODY SPUTUM. ORDERED NITRO DRIP AND STAT PORTABLE CXR. 1944: NITRO DRIP STARTED AT 5MCG/MIN; PATIENT RATES PAIN 4/10. O2 SATS 95%, OXYGEN DOWN TO 2L/MIN VIA NASAL CANNULA. 1954: PORTABLE CXR DONE. PATIENT C/O STERNAL CHEST PAIN, DIFFERENT FROM PREVIOUS CHEST PAIN, RATING 5/10; DR. HAMMER AT BEDSIDE; PATIENT GIVEN FENTANYL 50MCG IV. O2 SATS DOWN TO 90%; OXGYEN INCREASED TO 6L/MIN VIA NASAL CANNULA. DR. COTO CALLED; UPDATED ON ABOVE; DR. HAMMER SPOKE WITH DR. COTO BY PHONE. REC'D. ORDER TO STOP IV FLUIDS. 1999: PATIENT RATES CHEST PAIN 4/10. NO CHANGE IN NITRO DRIP. PATIENT REPOSITIONED IN BED WITH HOB AT 45 DEGREES. PATIENT TAKING SIPS OF WATER. 2014: PATIENT RATES CHEST PAIN AT 2/10; STATES SHE FEELS BETTER. VSS.
[2020-04-12 19:53] LABS: BASOPHILS ABSOLUTE AUTO 0.03 K/mm3 (0.00-0.23); BASOPHILS PERCENT AUTO 0 % (0-2); EOSINOPHILS ABSOLUTE AUTO 0.03 K/mm3 (0.00-0.68); EOSINOPHILS PERCENT AUTO 0 % (0-6); Hematocrit 34.4 % (33.0-51.0); Hemoglobin 10.9 g/dL (11.5-16.0); IMMATURE GRAN ABSOLUTE AUTO 0.04 K/mm3 (0.00-0.10); IMMATURE GRAN PERCENT AUTO 0 % (0-1); LYMPHOCYTES ABSOLUTE AUTO 0.77 K/mm3 (0.84-5.20); LYMPHOCYTES PERCENT AUTO 7 % (21-46); MONOCYTES ABSOLUTE AUTO 1.03 K/mm3 (0.16-1.47); MONOCYTES PERCENT AUTO 9 % (4-13); Mean Corpuscular HGB 29.7 pg (26.0-34.0); Mean Corpuscular HGB Conc 31.7 g/dL (31.5-36.5); Mean Corpuscular Volume 94 fL (80-100); Mean Platelet Volume 12.1 fL (9.1-12.4); NEUTROPHILS ABSOLUTE AUTO 9.99 K/mm3 (1.96-9.15); NEUTROPHILS PERCENT AUTO 84 % (41-73); Platelet Count 151 K/mm3 (150-400); RDW Coefficient Variation 14.8 % (11.7-14.2); RDW Standard Deviation 51.4 fL (35.1-46.3); Red Blood Cell Count 3.67 M/mm3 (3.80-5.20); White Blood Cell Count 11.89 K/mm3 (4.00-11.30)
[2020-04-12 20:04] LABS: Alanine Aminotransfer (ALT/SGP 118 U/L (12-78); Albumin/Globulin Ratio 0.9 (0.8-1.8); Alk Phos 64 U/L (50-136); Anion Gap 8 mmol/L (6-16); Aspartate Aminotrans (AST/SGOT 107 U/L (12-37); Bilirubin, Total 1.1 mg/dL (0.1-1.0); Blood Urea Nitrogen 8 mg/dL (8-24); Bun/Creatinine Ratio 16.7 (12.0-20.0); CO2, Blood 21 mmol/L (21-32); Calcium, Blood 8.1 mg/dL (8.5-10.1); Chloride, Blood 109 mmol/L (98-108); Creatinine, Blood 0.48 mg/dL (0.40-1.00); Globulin, Blood 3.3 g/dL (2.2-4.0); Glomerular Filtration Rate >60 (60-); Glucose, Blood 98 mg/dL (70-99); Magnesium, Blood 1.8 mg/dL (1.6-2.4); Potassium, Blood 3.8 mmol/L (3.5-5.5); Sodium, Blood 138 mmol/L (136-145); Total Protein, Blood 6.3 g/dL (6.4-8.2)
[2020-04-12 20:06] LABS: International Normalized Ratio 2.59
[2020-04-12 20:09] LABS: Prothrombin Time Results 26.3 Sec (9.7-11.5)
--- NOTE | 2020-04-13 | NUR ---
PATIENT C/O FEELING LIKE SHE IS "WHEEZING AND CAN'T GET AIR." SATS 92% ON OXYGEN AT 4L/MIN VIA NASAL CANNULA; BREATH SOUNDS TIGHT, NO WHEEZING NOTED. CALLED RESPIRATORY THERAPIST; NO NEBULIZER TREATMENTS ORDERED. CALLED DR. COTO; REC'D. ORDERS FOR PRN ALBUTEROL NEBULIZER TREATMENTS.
[2020-04-13 04:57] LABS: BASOPHILS ABSOLUTE AUTO 0.04 K/mm3 (0.00-0.23); BASOPHILS PERCENT AUTO 0 % (0-2); EOSINOPHILS ABSOLUTE AUTO 0.09 K/mm3 (0.00-0.68); EOSINOPHILS PERCENT AUTO 1 % (0-6); Hemoglobin 10.4 g/dL (11.5-16.0); IMMATURE GRAN ABSOLUTE AUTO 0.04 K/mm3 (0.00-0.10); IMMATURE GRAN PERCENT AUTO 0 % (0-1); LYMPHOCYTES ABSOLUTE AUTO 0.72 K/mm3 (0.84-5.20); LYMPHOCYTES PERCENT AUTO 7 % (21-46); MONOCYTES ABSOLUTE AUTO 1.11 K/mm3 (0.16-1.47); MONOCYTES PERCENT AUTO 10 % (4-13); Mean Corpuscular HGB 29.9 pg (26.0-34.0); Mean Corpuscular HGB Conc 31.5 g/dL (31.5-36.5); Mean Corpuscular Volume 95 fL (80-100); Mean Platelet Volume 12.1 fL (9.1-12.4); NEUTROPHILS ABSOLUTE AUTO 8.87 K/mm3 (1.96-9.15); NEUTROPHILS PERCENT AUTO 82 % (41-73); Platelet Count 139 K/mm3 (150-400); RDW Coefficient Variation 14.7 % (11.7-14.2); RDW Standard Deviation 52.2 fL (35.1-46.3); Red Blood Cell Count 3.48 M/mm3 (3.80-5.20); White Blood Cell Count 10.87 K/mm3 (4.00-11.30)
[2020-04-13 05:12] LABS: International Normalized Ratio 2.18
[2020-04-13 05:20] LABS: Anion Gap 8 mmol/L (6-16); Blood Urea Nitrogen 10 mg/dL (8-24); Bun/Creatinine Ratio 20.7 (12.0-20.0); CO2, Blood 23 mmol/L (21-32); Chloride, Blood 108 mmol/L (98-108); Creatinine, Blood 0.48 mg/dL (0.40-1.00); Glomerular Filtration Rate >60 (60-); Glucose, Blood 95 mg/dL (70-99); Magnesium, Blood 1.8 mg/dL (1.6-2.4); Potassium, Blood 3.6 mmol/L (3.5-5.5); Sodium, Blood 139 mmol/L (136-145)
[2020-04-13 05:51] LABS: Prothrombin Time Results 22.3 Sec (9.7-11.5)
--- NOTE | 2020-04-13 05:56 | NUR ---
SHIFT SUMMARY: PATIENT AWAKE MOST OF THE NIGHT. PATIENT HAD EPISODE OF CHEST/JAW/ARM PAIN WITH DIAPHORESIS AND NAUSEA AND START OF SHIFT; DR. HAMMER AT BEDSIDE; EKG'S DONE; CXR DONE; NITRO DRIP STARTED AND REMAINS AT 5MCG/MIN. PATIENT C/O INTERMITTENT STERNAL PAIN, S/P CPR, RELIEVED BY PRN FENTANYL. PATIENT CONTINUES TO COUGH UP THICK, BLOODY SPUTUM; SATS 90-94% ON OXYGEN AT 4L/MIN VIA NASAL CANNULA; BREATH SOUNDS WITH RHONCHI OVER BILATERAL UPPER LOBES; PATIENT GIVEN NEBULIZER TREATMENTS TWICE FOR INCREASED SOB/DYSPNEA; RR MID 20'S. PATIENT INSTRUCTED ON USE OF PILLOW TO SPLINT CHEST WHEN COUGHING. LABS DRAWN THIS AM; INR NOW 2.18. PLAN IS FOR PATIENT TO GO TO [facility] TODAY. AWAITING DAY SHIFT FOR HANDOFF.
--- NOTE | 2020-04-13 10:19 | NUR ---
ASSUMED CARE OF PT AT 0700. REPORT FROM IDALMIS FABIAN. PT TO DYER AND WASHER SHORTLY AFTER SHIFT CHANGE. PT RETURNS FROM [facility] AT 0940. TR BAND TO RIGHT ULNAR SITE, 15 ML OF AIR IN PLACE. SITE VERIFIED c VIRGIL FABIAN. SLIGHT HEMATOMA ABOVE BAND, MARKED, COBAN PLACED BY VIRGIL. PT REPORTS MILD TINGLING. CAP REFILL <3 SEC, P/W/D. WILL CONTINUE TO MONITOR SITE. PT ARRIVES ON 15L VIA NRB, CRACKLES THROUGHOUT, TACHYPNEIC. PLACED ON BIPAP /6 80%. PT TOLERATING WELL. EKG DONE AND SHOWN TO DR HAMMER. DR KRAFT AT BEDSIDE. BP STABLE. CALL LIGHT IN REACH. WILL CONTINUE TO MONITOR.
--- NOTE | 2020-04-13 17:20 | NUR ---
Initial spiritual care note: Mrs. Jade appears quite frail. She told me her extensive cardiac history. She has had several heart attacks and endure multiple rounds of CPR. Her this past October and she suffered a heart attack the same day and was hospitalized in this ICU. She tells me "everything's been downhill since then." She expresses a deep issa and says she is not afraid of . Her son lives in [place]. She has many friends who are local and supportive. Her best friend is her MPOA. Today is her birthday. She admits to feeling tired of fighting and is considering making herself a DNR but would like to speak to her friend first. I provided gentle bereavement drug and alcohol counselor as she admits she has been "too sick" herself to properly grieve the loss of her spouse. We prayed together and she asked me to return in coming days. Faye will benefit from continued drug and alcohol counselor and emotional/spiritual support.
--- NOTE | 2020-04-13 17:49 | NUR ---
SHIFT SUMMARY PT TO SITE SUPERVISING TECHNICAL OPERATOR THIS SHIFT. UPON RETURN, PT SOB, INCREASED WOB AND TACHYPNIC. IMPROVED c BIPAP. PT CURRENTLY ON 4L VIA NC, O2 SATS MID 90'S. LUNGS CLEAR IN UPPER LOBES, DIMINISHED IN BASES. PT P/W/D. TR BAND TO RIGHT ULNAR ACCESS DEFLATED AND REMOVED, SLIGHT OOZING, NO SWELLING. COBAN AND ARM BOARD IN PLACE. PT DENIES CARDIAC CHEST PAIN SINCE RETURN FROM SITE SUPERVISING TECHNICAL OPERATOR. REPORTS CHEST WALL PAIN TO LEFT SIDE D/T CPR. DENIES NEED FOR PAIN MEDS. PT DIURESED TODAY, 1450 ML URINE OUT. NITRO GTT ON STANDBY. VSS. WILL CONTINUE TO MONITOR UNTIL REPORT TO ONCOMING NURSE.
--- NOTE | 2020-04-13 18:09 | NUR ---
Pt resting in bed upon arrival. Pt is A&O. Engaged in therapeutic discussion regarding AD/POLST. Educated on life sustaining measures including risk factors and implications. Answered questions and discussed concerns. Dr Parikh in to examine Pt. After Dr Parikh is finished examination continued discussion. Educated on AD and POLST. Educated on each section to complete for both forms. Discussed different scenarios AD provides. Discussed the importance of assigning a healthcare digital media representative. Pt expresses appreciation of visit. Pt reports 5/10 pain in her chest. Spoke with Bedside RN Ml and relayed Pt's pain. Palliative Care will remain available.
--- NOTE | 2020-04-13 19:56 | NUR ---
ASSUMED CARE OF PT, BEDSIDE REPORT RECEIVED. PT IS RESTING QUIETLY IN RECLINER AT BEDSIDE. SHE IS SPEAKING IN FULL SENTENCES, DENIES NUMBNESS/TINGLING, DENIES CP/PRESSURE OTHER THAN TO MID AXILLARY LINE TO LEFT LATERAL CHEST WALL, SHE STATES THAT THIS IS MUCH MORE SURFACE AND MUSCULAR TYPE PAIN THAN HER CARDIAC PAIN. SHE RATES IT A 3/10 AND STATES THAT SHE HAS HAD TROUBLE WITH THIS AREA "SINCE THEY PUT THAT WINDOW IN MY HEART" AND THAT SOMETIMES IT IS PAINFUL ENOUGH THAT SHE HAS TROUBLE WEARING HER BRA. SHE ADMITS TO SOME SHORTNESS OF BREATH WITH ACTIVITY OTHERWISE DENIES DYSPNEA/SOB. SHE IS A STANDBY ASSIST FOR LINE MANAGEMENT TO GET BACK TO BED AND MAINTAINS ACTIVITY RESTRICTIONS TO RIGHT WRIST DURING TRANSFER. RIGHT WRIST IS NOTED WITH ARM BOARD IN PLACE, CLEAR DRESSING OVER RIGHT ULNAR ACCESS SITE WITH SCANT BLEEDING THAT HAS BEEN STABLE FOR PAST FEW HOURS PER DAY SHIFT RN, AREA OF BLOOD UNDER DRESSING APPROXIMATELY THE SIZE OF A QUARTER, DRESSING REMOVED, SITE CLEANED WITH CHLORAPREP AND NEW TEGADERM DRESSING IS PLACED, PT TOLERATED WELL, ARM BOARD TO RIGHT WRIST CONTINUES. LUNGS HAVE FINE CRACKLES MID TO BASES BILAT THAT CLEAR WITH COUGH, HEMOPTYSIS CONTINUES AT THIS TIME, IS NOT WORSENING PER OFFGOING RN, PT DOES REQUEST INCENTIVE SPIROMETER AND DEMONSTRATES UNDERSTANDING OF USE AT THIS TIME, SATS ARE LOW 90S WITH OXYGEN VIA NASAL CANNULA AT 4 L/MIN. HRR, SINUS ON MONITOR WITH OCCASIONAL PACS NOTED, PRESSURES MAINTAINING, NO EDEMA IS NOTED AT THIS TIME. ACTIVE BOWEL TONES X 4, ABD SOFT, NONTENDER TO PALP, PT DENIES NAUSEA. JACOB CATH REMAINS IN PLACE DRAINING CLEAR YELLOW URINE TO GRAVITY. PT DOES WANT JACOB DC'D, DISCUSSED RECENT LASIX ADMINISTRATION IV, PLAN FOR REMOVAL AT [facility].
--- NOTE | 2020-04-13 21:35 | NUR ---
PT SATS DECREASED TO 86% WITH OXYGEN VIA NASAL CANNULA AT 5 L/MIN, BIPAP APPLIED, PT VERBALIZES DISLIKE OF BIPAP SECONDARY TO "IT MAKES MY FACE HURT" ON INQUIRY, PT REPORTS THAT PAIN IS ACROSS THE BRIDGE OF HER NOSE, STRAP TENSION ADJUSTED AND PT REPORTS RELIEF.
--- NOTE | 2020-04-13 23:56 | NUR ---
PT REQUESTS BREAK FROM BIPAP SECONDARY TO PAIN AT BRIDGE OF HER NOSE. SATS LOW 90S WITH OXYGEN VIA NASAL CANNULA AT 5 L/MIN, WILL MONITOR. REQUESTED JACOB CATH DC'D, DONE, PT TOLERATED WELL.
[2020-04-14 04:47] LABS: BASOPHILS ABSOLUTE AUTO 0.05 K/mm3 (0.00-0.23); BASOPHILS PERCENT AUTO 0 % (0-2); EOSINOPHILS ABSOLUTE AUTO 0.13 K/mm3 (0.00-0.68); EOSINOPHILS PERCENT AUTO 1 % (0-6); Hematocrit 30.4 % (33.0-51.0); Hemoglobin 9.6 g/dL (11.5-16.0); IMMATURE GRAN ABSOLUTE AUTO 0.05 K/mm3 (0.00-0.10); IMMATURE GRAN PERCENT AUTO 0 % (0-1); LYMPHOCYTES ABSOLUTE AUTO 0.68 K/mm3 (0.84-5.20); LYMPHOCYTES PERCENT AUTO 5 % (21-46); MONOCYTES ABSOLUTE AUTO 1.21 K/mm3 (0.16-1.47); MONOCYTES PERCENT AUTO 10 % (4-13); Mean Corpuscular HGB 29.8 pg (26.0-34.0); Mean Corpuscular HGB Conc 31.6 g/dL (31.5-36.5); Mean Corpuscular Volume 94 fL (80-100); Mean Platelet Volume 12.4 fL (9.1-12.4); NEUTROPHILS ABSOLUTE AUTO 10.66 K/mm3 (1.96-9.15); NEUTROPHILS PERCENT AUTO 83 % (41-73); Platelet Count 145 K/mm3 (150-400); RDW Coefficient Variation 14.4 % (11.7-14.2); RDW Standard Deviation 49.9 fL (35.1-46.3); Red Blood Cell Count 3.22 M/mm3 (3.80-5.20); White Blood Cell Count 12.78 K/mm3 (4.00-11.30)
[2020-04-14 05:02] LABS: International Normalized Ratio 1.56; Prothrombin Time Results 16.3 Sec (9.7-11.5)
[2020-04-14 05:05] LABS: Alanine Aminotransfer (ALT/SGP 67 U/L (12-78); Albumin, Blood 2.7 g/dL (3.4-5.0); Albumin/Globulin Ratio 0.6 (0.8-1.8); Alk Phos 60 U/L (50-136); Anion Gap 8 mmol/L (6-16); Aspartate Aminotrans (AST/SGOT 64 U/L (12-37); Bilirubin, Total 1.3 mg/dL (0.1-1.0); Blood Urea Nitrogen 12 mg/dL (8-24); Bun/Creatinine Ratio 22.8 (12.0-20.0); CO2, Blood 25 mmol/L (21-32); Calcium, Blood 8.4 mg/dL (8.5-10.1); Chloride, Blood 102 mmol/L (98-108); Creatinine, Blood 0.53 mg/dL (0.40-1.00); Globulin, Blood 4.2 g/dL (2.2-4.0); Glomerular Filtration Rate >60 (60-); Glucose, Blood 110 mg/dL (70-99); Magnesium, Blood 1.7 mg/dL (1.6-2.4); Phosphorus, Blood 2.8 mg/dL (2.5-4.9); Potassium, Blood 3.6 mmol/L (3.5-5.5); Sodium, Blood 135 mmol/L (136-145); Total Protein, Blood 6.9 g/dL (6.4-8.2)
--- NOTE | 2020-04-14 06:32 | NUR ---
PT RESTS QUIETLY THROUGHOUT SHIFT, DENIES NAUSEA, CONTINUES TO USE INCENTIVE SPIROMETER WELL. DID WEAR BIPAP FOR APPROXIMATELY 2.5 HOURS AND TOLERATED WELL, SHE DID EXPRESS DISLIKE FOR BIPAP SECONDARY TO PAIN ACROSS THE BRIDGE OF HER NOSE, THIS WAS IMPROVED WITH STRAP ADJUSTMENT FOR COMFORT, LUNGS CONTINUE WITH CRACKLES THIS AM, PT DOES CONTINUE WITH PRODUCTIVE COUGH, HEMOPTYSIS CONTINUES, SATS ARE MAINTAINED WITH OXYGEN VIA NASAL CANNULA AT 5 L/MIN AND PT TOLERATES WELL, DOES ADMIT TO SOME SHORTNESS OF BREATH WITH INCREASES IN ACTIVITY OTHERWISE DENIES. CONTINUES IN SINUS RHYTHM THROUGHOUT SHIFT, INTERMITTENT PACS AND PVCS ARE NOTED, PRESSURES MAINTAINED. URINE OUTPUT GREATER THAN 1 LITER, PT UP TO BSC WITH SBA FOR LINE MANAGEMENT, REMAINS COMPLIANT WITH RIGHT ULNAR ACCESS RESTRICTIONS, DRESSING CHANGED TO RIGHT WRIST EARLY IN SHIFT, SITE REMAINS STABLE.
--- NOTE | 2020-04-14 10:00 | NUR ---
DR HAMMER / ASSUMED CARE: PROVIDER AT BEDSIDE TO SEE PT APPROX 0755. DISCUSSED W/ HIM PT's FREQUENT RUNS OF TACHYCARDIA W/ HR 170-180s. HE WOULD LIKE TO START METOPROLOL BUT BECAUSE PT HAS NOTED ALLERGY & CANNOT REMEMBER REACTION TO MED, HE HAS OPTED TO START TIKOSYN AT HALF OF PT's NORMAL HOME DOSE. EKG PRN ORDER PLACED FOR EKG TO BE COMPLETED 2 HRS AFTER EACH DOSE OF TIKOSYN. DR FOSTER WILL BE TAKING OVER THIS CASE & SHE SHOULD BE NOTIFIED OF EACH EKG RESULT FROM THIS POINT FORWARD. BASELINE EKG HAS BEEN COMPLETED & DR HAMMER HAS BEEN NOTIFIED OF RESULTS. REPORT RECEIVED FROM MIKIE Loco RN. ASSUMED CARE OF THIS PT AT APPROX 0700. ON ASSESSMENT, THE PT IS A&O, PLEASANT & COOPERATIVE. SHE DENIES CP OR ANY PAIN AFTER RECEIVING MEDS PER EMAR. NAUSEA AFTER PAIN MEDS RESOLVED W/ MEDS PER EMAR. LS ARE DIM, COARSE IN BASES. PT ON 5L NC W/ O2 SATS > 92%. MONITOR SHOWS SR W/ HR 70-80s, BP STABLE. PT HAVING RUNS OF TACHYCARDIA SINCE APPROX 0330 THIS AM W/ HR 180s. JACOB REMOVED AT APPROX 0000 PER REPORT, PT HAS VOIDED SINCE THAT TIME. SKIN CONDITION OVERALL FRAGILE W/ SCATTERED BRUSING, BUT INTACT. PUNCTURE SITE TO R ULNAR S/P PCI IS WNL; SMALL AMNT OF SANGUINOUS OOZING NOTED UNDER TEGADERM & SMALL AMNT BRUISING NOTED WELL. WILL CONTINUE TO MONITOR & UPDATE NEEDED.
--- NOTE | 2020-04-14 10:51 | NUR ---
DR KRAFT: PROVIDER AT BEDSIDE APPROX 1020 THIS AM. SHE HAS CHANGED MAG REPLETION TO IV R/T PT's CONTINUED ECTOPY NOTED ON TELE. SHE BELIEVES THAT THE PT COULD STATUS CHANGE TO PCU THIS AFTERNOON BUT WOULD LIKE HER TO REMAIN ICU STATUS CURRENTLY. ORDERS ALSO PLACED FOR CT SCAN OF CHEST R/T CONTINUED HEMOPTOSIS.
--- NOTE | 2020-04-14 14:52 | NUR ---
TRANSFER TO PCU: BEDSIDE REPORT HAS BEEN GIVEN TO BANDAR Rice RN TO ASSUME CARE. PT HAS BEEN TRANSPORTED TO IMAGING FOR CT OF CHEST W/ NO CONTRAST. PT THEN TRANSFERRED TO ROOM PCU-06. MEDS, CHART & ALL PT BELONGINGS HAVE BEEN TAKEN W/ THE PT.
--- NOTE | 2020-04-14 18:34 | NUR ---
PCU DAYSHIFT SUMMARY PATIENT ALERT AND ORIENTED X4 - MILD CONFUSION, REORIENTS EASILY. PATIENT SBA TO BATHROOM - TOLERATES FAIRLY. RESP LABORED AND UNEVEN ON 5 LPM NC WITH HUMIDIFIER. PATIENTS SISTER AT BEDSIDE. PATIENT DENIES ANY PAIN. ENCOURAGED TO EAT/DRINK. VSS. SR WITH PVC'S IN THE 60'S - NO CARDIAC EVENTS PER LENS EDGER SINCE ARRIVAL TO PCU. PICC WNL. PATIENT DENIES ANY NEEDS AT THIS TIME. CALL LIGHT W/I REACH. WILL CONTINUE TO MONITOR AND REPORT TO NOC SHIFT RN.
--- NOTE | 2020-04-14 18:43 | NUR ---
Pt resting in bed and reports 2/10 pain in her chest that worsens with movement. Pt's sister at bedside. Engaged in therapeutic listening as Pt reports considering her wishes for life sustaining treatment. Pt states she has thought about it since this RN's visit from yesterday and reports she does not want to experience CPR again. Pt reports wanting to be a DNR. Confirmed Pt's understanding of DNR. Pt reports understanding. Continued therapeutic listening as Pt reports plan to for future and obtain will and arrange other needs. Continued therapeutic listening and answered questions. Pt expresses appreciation of visit and report no other concerns at this time. Spoke with Bedside RUI Persaud and discussed case. Spoke with Dr Quintanilla and reported Pt's wishes to be DNR. Placed new code status order for DNR per V/O from Dr Quintanilla. Palliative Care will remain available.
[2020-04-15 04:34] LABS: BASOPHILS ABSOLUTE AUTO 0.05 K/mm3 (0.00-0.23); BASOPHILS PERCENT AUTO 0 % (0-2); EOSINOPHILS ABSOLUTE AUTO 0.16 K/mm3 (0.00-0.68); EOSINOPHILS PERCENT AUTO 1 % (0-6); Hematocrit 28.3 % (33.0-51.0); IMMATURE GRAN ABSOLUTE AUTO 0.08 K/mm3 (0.00-0.10); IMMATURE GRAN PERCENT AUTO 1 % (0-1); LYMPHOCYTES ABSOLUTE AUTO 0.64 K/mm3 (0.84-5.20); LYMPHOCYTES PERCENT AUTO 6 % (21-46); MONOCYTES ABSOLUTE AUTO 1.14 K/mm3 (0.16-1.47); MONOCYTES PERCENT AUTO 10 % (4-13); Mean Corpuscular HGB 29.6 pg (26.0-34.0); Mean Corpuscular HGB Conc 31.8 g/dL (31.5-36.5); Mean Corpuscular Volume 93 fL (80-100); Mean Platelet Volume 12.1 fL (9.1-12.4); NEUTROPHILS ABSOLUTE AUTO 9.23 K/mm3 (1.96-9.15); NEUTROPHILS PERCENT AUTO 82 % (41-73); Platelet Count 160 K/mm3 (150-400); RDW Standard Deviation 47.4 fL (35.1-46.3); Red Blood Cell Count 3.04 M/mm3 (3.80-5.20)
[2020-04-15 04:48] LABS: International Normalized Ratio 1.76; Prothrombin Time Results 18.2 Sec (9.7-11.5)
[2020-04-15 04:54] LABS: Alanine Aminotransfer (ALT/SGP 51 U/L (12-78); Albumin, Blood 2.6 g/dL (3.4-5.0); Albumin/Globulin Ratio 0.7 (0.8-1.8); Alk Phos 61 U/L (50-136); Anion Gap 7 mmol/L (6-16); Aspartate Aminotrans (AST/SGOT 36 U/L (12-37); Bilirubin, Total 1.2 mg/dL (0.1-1.0); Blood Urea Nitrogen 16 mg/dL (8-24); Bun/Creatinine Ratio 23.9 (12.0-20.0); CO2, Blood 28 mmol/L (21-32); Calcium, Blood 8.3 mg/dL (8.5-10.1); Chloride, Blood 100 mmol/L (98-108); Creatinine, Blood 0.67 mg/dL (0.40-1.00); Globulin, Blood 3.5 g/dL (2.2-4.0); Glomerular Filtration Rate >60 (60-); Glucose, Blood 120 mg/dL (70-99); Phosphorus, Blood 2.1 mg/dL (2.5-4.9); Sodium, Blood 135 mmol/L (136-145); Total Protein, Blood 6.1 g/dL (6.4-8.2)
--- NOTE | 2020-04-15 06:02 | NUR ---
patient came in for a STEMI followed by a cardiac arrest At which time patient was adequately resuscitated. Overnight the patient complained of pain on her left ribs due to CPR that occurred five days ago. The patient is still spitting up blood and occasionally drops her SpO2, although she is unable to tolerate her CPAP due to hemoptisis. No other events overnight, no clinical concerns at this time. Vital signs stable. Patient states that she feels weak, so I will recommend physical therapy evaluation to the shift oncoming nurse.
--- NOTE | 2020-04-15 09:30 | NUR ---
ASSUMING CARE OF PT, RECEIVED REPORT FROM RUI VAZQUEZ. PT ABLE TO TRANSFER SELF TO AND FROM [facility], REQUESTS AND RECEIVES PAIN MEDICATION. PT CONTINUES WITH COUGH PRODUCTIVE OF BLOODY SPUTUM, SUCTIONING SELF APPROPRIATELY. RESPIRATORY THERAPY IN ROOM FOR EVAL.
--- NOTE | 2020-04-15 11:21 | NUR ---
Spirtual care visit conducted. Patient is lying in bed and alert. Patient tells me about the horrible that occurred last October in which her and she had a heart attack while EMT was attending to her . Patient then tells me about the subsequent heart attacks that she has had and the pain she is currently having due to the CPR that was performed on her this visit. Patient explains that she has changed her code status to DNR and tells me that she is now ready to "go." Thalia shares about her Day [employer] issa, about how God has been her strength and how she has barely had time to grieve the loss of her . I listen empathically, reinforce helpful attitudes and practices, normalize patient's experience and provide grief support, pastoral counseling program leader and prayer. Patient responds well and shows signs of catharsis and improved hope. I will continue to assist patient in dealing with the emotional and spiritual issues she is facing.
--- NOTE | 2020-04-15 18:40 | NUR ---
PATIENT SUMMARY: PT CONTINUES TO BE A&OX4 T/OUT DAYSHIFT. ARM BOARD REMOVED FROM RIGHT RADIAL, SITE WNL, NO BLEEDING, PUNCTURE MEGAN NOTED, LIGHT BRUISING, RADIAL PULSE STRONG AND STEADY, CAP REFILL <2 SECONDS, SENSATION INTACT. DR MORALES CONTACTED FOR PAIN MEDICATION CHANGE, POC IS TO WEAN PT OFF IV PAIN MEDS TOWARDS ORAL PAIN MEDS. PT'S OXYGEN FLOW DECREASED FROM 5L/MIN VIA N/C TO 4L/MIN, TOLERATING WELL, MAINTAINING SATS IN LOW 90'S. WILL CONTINUE TO MONITOR AND TREAT ACCORDINGLY UNTIL CHANGE OF SHIFT.
[2020-04-16 03:57] LABS: BASOPHILS ABSOLUTE AUTO 0.04 K/mm3 (0.00-0.23); BASOPHILS PERCENT AUTO 1 % (0-2); EOSINOPHILS ABSOLUTE AUTO 0.21 K/mm3 (0.00-0.68); EOSINOPHILS PERCENT AUTO 3 % (0-6); Hematocrit 25.9 % (33.0-51.0); Hemoglobin 8.2 g/dL (11.5-16.0); IMMATURE GRAN ABSOLUTE AUTO 0.04 K/mm3 (0.00-0.10); IMMATURE GRAN PERCENT AUTO 1 % (0-1); LYMPHOCYTES ABSOLUTE AUTO 0.75 K/mm3 (0.84-5.20); LYMPHOCYTES PERCENT AUTO 9 % (21-46); MONOCYTES ABSOLUTE AUTO 0.92 K/mm3 (0.16-1.47); MONOCYTES PERCENT AUTO 11 % (4-13); Mean Corpuscular HGB 29.5 pg (26.0-34.0); Mean Corpuscular HGB Conc 31.7 g/dL (31.5-36.5); Mean Corpuscular Volume 93 fL (80-100); Mean Platelet Volume 11.8 fL (9.1-12.4); NEUTROPHILS ABSOLUTE AUTO 6.33 K/mm3 (1.96-9.15); NEUTROPHILS PERCENT AUTO 76 % (41-73); Platelet Count 148 K/mm3 (150-400); Red Blood Cell Count 2.78 M/mm3 (3.80-5.20); White Blood Cell Count 8.29 K/mm3 (4.00-11.30)
[2020-04-16 04:11] LABS: International Normalized Ratio 1.74
[2020-04-16 04:15] LABS: Alanine Aminotransfer (ALT/SGP 45 U/L (12-78); Albumin, Blood 2.5 g/dL (3.4-5.0); Albumin/Globulin Ratio 0.7 (0.8-1.8); Alk Phos 72 U/L (50-136); Anion Gap 5 mmol/L (6-16); Aspartate Aminotrans (AST/SGOT 25 U/L (12-37); Bilirubin, Total 1.2 mg/dL (0.1-1.0); Blood Urea Nitrogen 13 mg/dL (8-24); Bun/Creatinine Ratio 20.8 (12.0-20.0); CO2, Blood 31 mmol/L (21-32); Calcium, Blood 8.3 mg/dL (8.5-10.1); Chloride, Blood 99 mmol/L (98-108); Creatinine, Blood 0.62 mg/dL (0.40-1.00); Globulin, Blood 3.5 g/dL (2.2-4.0); Glomerular Filtration Rate >60 (60-); Glucose, Blood 92 mg/dL (70-99); Potassium, Blood 3.9 mmol/L (3.5-5.5); Sodium, Blood 135 mmol/L (136-145)
[2020-04-16 04:35] LABS: Percent Saturation 5.9 % (15.0-50.0)
--- NOTE | 2020-04-16 06:51 | NUR ---
PATIENT IS ALERT AND ORIENTED. SHE COMPLAINED OF CHEST PAIN ON HER LEFT SIDE WHICH IS RELIEVED BY HYDROMORPHONE. SHE REQUIRES ASSISTANCE FOR TURNS AND IS GENERALLY DECONDITIONED. SHE NEEDED AN INCREASE TO 6L OF 02 NC BEFORE BEING PUT ON BIPAP OVERNIGHT. SHE IS TOLERATING BIPAP WELL CURRENTLY. NO COMPLAINTS OF PAIN OR SOB. SHE REQUIRED STRAIGHT CATHING AT 4AM DUE TO HER INABILITY TO VOID INDEPENDENTLY. WILL CONTINUE TO MONITOR UNTIL END OF SHIFT.
--- NOTE | 2020-04-16 08:09 | NUR ---
ASSUMING CARE OF PT. RECEIVED REPORT FROM RUI CAI. PT TOLERATED BIPAP T/OUT NIGHT, STATES SHE SLEPT WELL. VSS, PT PROVIDED WITH MEAL TRAY.
--- NOTE | 2020-04-16 18:40 | NUR ---
SHIFT SUMMARY: PT CONTINUES ALERT AND ORIENTED T/OUT SHIFT, IS ABLE TO GET IN AND OUT OF BED WITH SBA, VOIDS INDEPENDENTLY WITH OUTPUT CHARTED. PT BECOMES SOMNOLENT AFTER DILAUDID ADMINISTRATIONS, DR MORALES CONSULTED, DILAUDID DC'D, PT MEDICATED WITH HALF DOSES (5MG) OF OXYCODONE PO, TOLERATES WELL AND MAINTAINS ALERTNESS. OXYGEN FLOW DECREASED TO 3L/MIN VIA N/C WITH O2 SATS MAINTAINED >90%. DECREASE IN BLOODY SPUTUM NOTED, BUT REPEAT CHEST XRAY SHOWS WORSENING LUNG CONSOLIDATION, SPUTUM SAMPLE COLLECTED AND SENT TO LAB. PT CONTINUES TO DENY BM, STOOL SAMPLE NEEDED UPON PT ABILITY TO PROVIDE ONE TO R/OUT GI BLEED D/T LOW H/H.
[2020-04-17 04:44] LABS: BASOPHILS ABSOLUTE AUTO 0.06 K/mm3 (0.00-0.23); BASOPHILS PERCENT AUTO 1 % (0-2); EOSINOPHILS ABSOLUTE AUTO 0.45 K/mm3 (0.00-0.68); EOSINOPHILS PERCENT AUTO 5 % (0-6); Hemoglobin 8.7 g/dL (11.5-16.0); IMMATURE GRAN ABSOLUTE AUTO 0.05 K/mm3 (0.00-0.10); IMMATURE GRAN PERCENT AUTO 1 % (0-1); LYMPHOCYTES ABSOLUTE AUTO 0.97 K/mm3 (0.84-5.20); LYMPHOCYTES PERCENT AUTO 10 % (21-46); MONOCYTES ABSOLUTE AUTO 1.21 K/mm3 (0.16-1.47); MONOCYTES PERCENT AUTO 13 % (4-13); Mean Corpuscular HGB 30.3 pg (26.0-34.0); Mean Corpuscular HGB Conc 32.2 g/dL (31.5-36.5); Mean Corpuscular Volume 94 fL (80-100); Mean Platelet Volume 12.1 fL (9.1-12.4); NEUTROPHILS ABSOLUTE AUTO 6.55 K/mm3 (1.96-9.15); NEUTROPHILS PERCENT AUTO 71 % (41-73); Platelet Count 201 K/mm3 (150-400); RDW Coefficient Variation 14.1 % (11.7-14.2); RDW Standard Deviation 48.9 fL (35.1-46.3); Red Blood Cell Count 2.87 M/mm3 (3.80-5.20); White Blood Cell Count 9.29 K/mm3 (4.00-11.30)
[2020-04-17 04:58] LABS: International Normalized Ratio 1.84
[2020-04-17 05:01] LABS: Anion Gap 6 mmol/L (6-16); Blood Urea Nitrogen 17 mg/dL (8-24); CO2, Blood 30 mmol/L (21-32); Calcium, Blood 8.6 mg/dL (8.5-10.1); Chloride, Blood 100 mmol/L (98-108); Creatinine, Blood 0.77 mg/dL (0.40-1.00); Glomerular Filtration Rate >60 (60-); Glucose, Blood 97 mg/dL (70-99); Potassium, Blood 3.9 mmol/L (3.5-5.5); Sodium, Blood 136 mmol/L (136-145)
--- NOTE | 2020-04-17 05:54 | NUR ---
PATIENT IS ALERT AND ORIENTED, SHE IS COMPLAINING OF LEFT SIDED CHEST PAIN. OXYCODONE ADMINISTERED AND SEEMS TO RELIEVE HER PAIN. SHE IS ON BIPAP OVERNIGHT. WHEN SHE IS NOT ON BIPAP, SHE IS ON 3L OF OXYGEN SATTING MID 90'S. VSS, CALL LIGHT WITHIN REACH, WILL CONTINUE TO MONITOR UNTIL END OF SHIFT
--- NOTE | 2020-04-17 15:36 | NUR ---
SHIFT SUMMARY PT IS A/O X 4 WITH C/O PAIN X 1. SHE WAS MEDICATED PER EMAR AND REPORTSIT WAS EFFECTIVE. PT WAS ASSISTED UP THIS MORNING WITH BED BATH AND WASHED HER HAIR THIS MORNING. SHE HAS A GOOD APPETITE. PICC IS PATENT. SiBEAM REPORTS SINUS @ 87. PT HAS NO S/S OF RESP OR CARIDIAC DISTRESS. SHE WAS ABLE TO WORK WITH THERAPIES. PLAN IS FOR HER TO DC HOME WITH SISTER TOMORROW OR THE NEXT DAY. SHE IS ABLE TO MAKE HER NEEDS KNOWN AND CALLS FOR HELP WHEN NEEDED. SHE HAS HER CALL LIGHT IN REACH.
[2020-04-18 05:11] LABS: BASOPHILS ABSOLUTE AUTO 0.05 K/mm3 (0.00-0.23); BASOPHILS PERCENT AUTO 1 % (0-2); EOSINOPHILS ABSOLUTE AUTO 0.42 K/mm3 (0.00-0.68); EOSINOPHILS PERCENT AUTO 5 % (0-6); Hematocrit 27.8 % (33.0-51.0); Hemoglobin 8.7 g/dL (11.5-16.0); IMMATURE GRAN ABSOLUTE AUTO 0.05 K/mm3 (0.00-0.10); IMMATURE GRAN PERCENT AUTO 1 % (0-1); LYMPHOCYTES ABSOLUTE AUTO 1.17 K/mm3 (0.84-5.20); LYMPHOCYTES PERCENT AUTO 14 % (21-46); MONOCYTES ABSOLUTE AUTO 0.94 K/mm3 (0.16-1.47); MONOCYTES PERCENT AUTO 12 % (4-13); Mean Corpuscular HGB 29.5 pg (26.0-34.0); Mean Corpuscular HGB Conc 31.3 g/dL (31.5-36.5); Mean Corpuscular Volume 94 fL (80-100); NEUTROPHILS PERCENT AUTO 68 % (41-73); Platelet Count 238 K/mm3 (150-400); RDW Coefficient Variation 14.3 % (11.7-14.2); RDW Standard Deviation 49.9 fL (35.1-46.3); Red Blood Cell Count 2.95 M/mm3 (3.80-5.20); White Blood Cell Count 8.13 K/mm3 (4.00-11.30)
[2020-04-18 05:22] LABS: International Normalized Ratio 2.35
[2020-04-18 05:36] LABS: Alanine Aminotransfer (ALT/SGP 43 U/L (12-78); Albumin, Blood 2.5 g/dL (3.4-5.0); Albumin/Globulin Ratio 0.6 (0.8-1.8); Alk Phos 136 U/L (50-136); Anion Gap 7 mmol/L (6-16); Aspartate Aminotrans (AST/SGOT 39 U/L (12-37); Bilirubin, Total 1.2 mg/dL (0.1-1.0); Blood Urea Nitrogen 14 mg/dL (8-24); Bun/Creatinine Ratio 19.9 (12.0-20.0); CO2, Blood 31 mmol/L (21-32); Calcium, Blood 8.6 mg/dL (8.5-10.1); Chloride, Blood 96 mmol/L (98-108); Creatinine, Blood 0.71 mg/dL (0.40-1.00); Globulin, Blood 4.4 g/dL (2.2-4.0); Glomerular Filtration Rate >60 (60-); Glucose, Blood 90 mg/dL (70-99); Potassium, Blood 3.6 mmol/L (3.5-5.5); Sodium, Blood 134 mmol/L (136-145); Total Protein, Blood 6.9 g/dL (6.4-8.2)
--- NOTE | 2020-04-18 07:50 | NUR ---
SHIFT SUMMARY PT A&O X3-4; APPEARS FORGETFUL REGARDING MEDICATIONS AT TIMES; VSS; SVT NOTED ON TELE X3 THIS SHIFT; RHYTHM STRIPS IN CHART; EKG PERFORMED 2HRS AFTER 2100 DOSE OF TIKOSYN; ADDITIONAL EKG THIS AM; C/O CHEST PAIN R/T COMPRESSIONS; OXYCODONE X 2 THIS SHIFT; PT EXPRESSES CONCERNS REGARDING MEDICATIONS AND DESIRE TO RETURN HOME; SIGNIFICANT TIME SPENT ALLOWING PT TO EXPRESS FEELINGS; SBA W/ FWW FOR BRP; CALL LIGHT IN REACH; BED IN LOWEST POSITION; REPORT GIVEN TO DAY SHIFT RN.
--- NOTE | 2020-04-18 10:24 | NUR ---
Call to Dr. Beal because the home med reconcilation wasn't complete and therefore the discharge med rec does not address some of her current home meds. Dr. Beal states she will review it and get back to us here in PCU.
[2020-04-18] MEDS ORDERED: WARF10 PO (11:43)
[2020-04-18] MEDS ORDERED: WARF7.5 PO (11:43)
[2020-04-18] MEDS ORDERED: BENZ100A PO (13:34)
[2020-04-18] MEDS ORDERED: DOFETILIDE250 MCG PO (13:35)
--- NOTE | 2020-04-18 15:00 | NUR ---
DISCHARGE PT DISCHARGED TO HOME. D/C INSTRUCTIONS PROVIDED, HOME O2 EVAL COMPLETED. O2 BROUGHT IN BY AMILCAR, DETAILED MEDICATION INSTRUCTIONS WERE PROVIDED TO THE PT AND HER BROTHER. PT ENC TO F/U JORGE FOR ANY PROBLEMS OR CONCERNS.
== END 2020-04-18 15:00 | DRG 246 ==
LOC: ER 23:08 → ICUE 23:38 → ICUW 23:38 → PCU 23:38 → ICUW 04-11 01:35 → ICUE 04-11 01:35 → PCU 04-14 14:43 → ICUE 04-14 14:43 → PCU 04-18 15:00
PROVIDERS: Emergency Medicine; Internal Medicine; Internal Medicine Critical Care Medicine; Pharmacist; ADMIT Internal Medicine Interventional Cardiology
PROC: 027034Z Dilation of Coronary Artery, One Artery with Drug-eluting Intraluminal Device, Percutaneous Approach (ICD-10-PCS; principal; 2020-04-10)
PROC: 4A023N7 Measurement of Cardiac Sampling and Pressure, Left Heart, Percutaneous Approach (ICD-10-PCS; 2020-04-10)
PROC: B2111ZZ Fluoroscopy of Multiple Coronary Arteries using Low Osmolar Contrast (ICD-10-PCS; 2020-04-10)
PROC: B2151ZZ Fluoroscopy of Left Heart using Low Osmolar Contrast (ICD-10-PCS; 2020-04-10)
PROC: 5A2204Z Restoration of Cardiac Rhythm, Single (ICD-10-PCS; 2020-04-10)
PROC: 0BH18EZ Insertion of Endotracheal Airway into Trachea, Via Natural or Artificial Opening Endoscopic (ICD-10-PCS; 2020-04-10)
PROC: 5A1945Z Respiratory Ventilation, 24-96 Consecutive Hours (ICD-10-PCS; 2020-04-10)
PROC: 027034Z Dilation of Coronary Artery, One Artery with Drug-eluting Intraluminal Device, Percutaneous Approach (ICD-10-PCS; 2020-04-13)
PROC: B2111ZZ Fluoroscopy of Multiple Coronary Arteries using Low Osmolar Contrast (ICD-10-PCS; 2020-04-13)
PROC: 5A09357 Assistance with Respiratory Ventilation, Less than 24 Consecutive Hours, Continuous Positive Airway Pressure (ICD-10-PCS; 2020-04-13)
DX: I21.3 ST elevation (STEMI) myocardial infarction of unspecified site (principal); I49.01 Ventricular fibrillation; J96.01 Acute respiratory failure with hypoxia; J18.9 Pneumonia, unspecified organism; I50.23 Acute on chronic systolic (congestive) heart failure; R04.2 Hemoptysis; Z79.01 Long term (current) use of anticoagulants; I25.2 Old myocardial infarction; Z87.891 Personal history of nicotine dependence; I25.10 Atherosclerotic heart disease of native coronary artery without angina pectoris; I48.0 Paroxysmal atrial fibrillation; H11.431 Conjunctival hyperemia, right eye; I77.9 Disorder of arteries and arterioles, unspecified; K21.9 Gastro-esophageal reflux disease without esophagitis; I73.9 Peripheral vascular disease, unspecified; Z66 Do not resuscitate; G47.00 Insomnia, unspecified; D63.8 Anemia in other chronic diseases classified elsewhere; F32.9 Major depressive disorder, single episode, unspecified; I95.9 Hypotension, unspecified
CPT/HCPCS: 31500; 31720; 36415; 36569; 51702; 71045; 71250; 76937; 80047; 80048; 80053; 82728; 83540; 83550; 83735; 83880; 84100; 84132; 84145; 84484; 85014; 85025; 85347; 85610; 85730; 87070; 87205; 92960; 93005; 93010; 93308; 93321; 93458; 94002; 94003; 94640; 94660; 94667; 94762; 97116; 97162; 97530; 99152; 99153; 99285-25; A9270; A9270-GY; C1725; C1751; C1769; C1874; C1887; C1894; C9600; C9606; J0696; J1170; J1644; J1940; J2250; J2270; J2405; J2543; J2704; J3010; J3475; J3480; J7030; J7050; J7060; Q9967

== ENCOUNTER 2020-04-20 22:12 | Observation (INO) | payer OTHER ==
[~2020-04-20] VITALS: Ht 157.5 cm; Wt 84.8 kg
[~2020-04-20 22:12] MED LIST changes: +BENZ100A PO; +WARF10 PO; +WARF7.5 PO
[2020-04-20 22:40] LABS: BASOPHILS ABSOLUTE AUTO 0.05 K/mm3 (0.00-0.23); BASOPHILS PERCENT AUTO 1 % (0-2); EOSINOPHILS PERCENT AUTO 3 % (0-6); Hematocrit 23.8 % (33.0-51.0); Hemoglobin 7.8 g/dL (11.5-16.0); IMMATURE GRAN ABSOLUTE AUTO 0.16 K/mm3 (0.00-0.10); IMMATURE GRAN PERCENT AUTO 2 % (0-1); LYMPHOCYTES ABSOLUTE AUTO 1.18 K/mm3 (0.84-5.20); LYMPHOCYTES PERCENT AUTO 12 % (21-46); MONOCYTES ABSOLUTE AUTO 0.97 K/mm3 (0.16-1.47); MONOCYTES PERCENT AUTO 10 % (4-13); Mean Corpuscular HGB 29.8 pg (26.0-34.0); Mean Corpuscular HGB Conc 32.8 g/dL (31.5-36.5); Mean Corpuscular Volume 91 fL (80-100); Mean Platelet Volume 11.8 fL (9.1-12.4); NEUTROPHILS ABSOLUTE AUTO 7.18 K/mm3 (1.96-9.15); NEUTROPHILS PERCENT AUTO 73 % (41-73); Platelet Count 280 K/mm3 (150-400); RDW Standard Deviation 46.1 fL (35.1-46.3); Red Blood Cell Count 2.62 M/mm3 (3.80-5.20); White Blood Cell Count 9.84 K/mm3 (4.00-11.30)
[2020-04-20 22:56] LABS: Alanine Aminotransfer (ALT/SGP 39 U/L (12-78); Albumin, Blood 2.4 g/dL (3.4-5.0); Albumin/Globulin Ratio 0.7 (0.8-1.8); Alk Phos 108 U/L (50-136); Anion Gap 9 mmol/L (6-16); Aspartate Aminotrans (AST/SGOT 39 U/L (12-37); Blood Urea Nitrogen 14 mg/dL (8-24); Bun/Creatinine Ratio 20.5 (12.0-20.0); CO2, Blood 26 mmol/L (21-32); Chloride, Blood 91 mmol/L (98-108); Creatinine, Blood 0.68 mg/dL (0.40-1.00); Globulin, Blood 3.4 g/dL (2.2-4.0); Glomerular Filtration Rate >60 (60-); Glucose, Blood 106 mg/dL (70-99); Potassium, Blood 3.8 mmol/L (3.5-5.5); Sodium, Blood 126 mmol/L (136-145); Total Protein, Blood 5.8 g/dL (6.4-8.2); Troponin I 0.079 ng/mL (0.000-0.040)
[2020-04-20 22:58] LABS: International Normalized Ratio 3.36; Prothrombin Time Results 33.6 Sec (9.7-11.5)
[2020-04-21 03:03] LABS: Adenovirus Not Detected (NOT DETECT); Bordetella pertussis Not Detected (NOT DETECT); Chlamydophila pneumoniae Not Detected (NOT DETECT); Coronavirus 229E Not Detected (NOT DETECT); Coronavirus HKU1 Not Detected (NOT DETECT); Coronavirus NL63 Not Detected (NOT DETECT); Coronavirus OC43 Not Detected (NOT DETECT); Human Metapneumovirus Not Detected (NOT DETECT); Human Rhinovirus/Enterovirus Not Detected (NOT DETECT); Influenza A/2009-H1 Not Detected (NOT DETECT); Influenza A/H1 Not Detected (NOT DETECT); Influenza A/H3 Not Detected (NOT DETECT); Influenza B Not Detected (NOT DETECT); Mycoplasma pneumoniae Not Detected (NOT DETECT); Parainfluenza Virus 1 Not Detected (NOT DETECT); Parainfluenza Virus 2 Not Detected (NOT DETECT); Parainfluenza Virus 3 Not Detected (NOT DETECT); Parainfluenza Virus 4 Not Detected (NOT DETECT); Respiratory Syncytial Virus Not Detected (NOT DETECT); SARS-Cov-2 (COVID-19), BioFire Not Detected (NOT DETECT)
[2020-04-21 08:39] LABS: BASOPHILS ABSOLUTE AUTO 0.05 K/mm3 (0.00-0.23); BASOPHILS PERCENT AUTO 1 % (0-2); EOSINOPHILS ABSOLUTE AUTO 0.23 K/mm3 (0.00-0.68); EOSINOPHILS PERCENT AUTO 3 % (0-6); Hematocrit 23.8 % (33.0-51.0); Hemoglobin 7.6 g/dL (11.5-16.0); IMMATURE GRAN PERCENT AUTO 1 % (0-1); LYMPHOCYTES ABSOLUTE AUTO 0.62 K/mm3 (0.84-5.20); LYMPHOCYTES PERCENT AUTO 7 % (21-46); MONOCYTES ABSOLUTE AUTO 0.77 K/mm3 (0.16-1.47); MONOCYTES PERCENT AUTO 9 % (4-13); Mean Corpuscular HGB 29.2 pg (26.0-34.0); Mean Corpuscular HGB Conc 31.9 g/dL (31.5-36.5); Mean Corpuscular Volume 92 fL (80-100); Mean Platelet Volume 11.8 fL (9.1-12.4); NEUTROPHILS ABSOLUTE AUTO 6.59 K/mm3 (1.96-9.15); NEUTROPHILS PERCENT AUTO 79 % (41-73); Platelet Count 275 K/mm3 (150-400); RDW Coefficient Variation 13.9 % (11.7-14.2); RDW Standard Deviation 46.6 fL (35.1-46.3); White Blood Cell Count 8.36 K/mm3 (4.00-11.30)
[2020-04-21 08:53] LABS: Alanine Aminotransfer (ALT/SGP 35 U/L (12-78); Albumin, Blood 2.3 g/dL (3.4-5.0); Albumin/Globulin Ratio 0.7 (0.8-1.8); Alk Phos 98 U/L (50-136); Anion Gap 7 mmol/L (6-16); Aspartate Aminotrans (AST/SGOT 27 U/L (12-37); Bilirubin, Total 0.7 mg/dL (0.1-1.0); Blood Urea Nitrogen 11 mg/dL (8-24); Bun/Creatinine Ratio 22.2 (12.0-20.0); CO2, Blood 28 mmol/L (21-32); Calcium, Blood 7.8 mg/dL (8.5-10.1); Chloride, Blood 95 mmol/L (98-108); Globulin, Blood 3.5 g/dL (2.2-4.0); Glomerular Filtration Rate >60 (60-); Glucose, Blood 95 mg/dL (70-99); Potassium, Blood 3.8 mmol/L (3.5-5.5); Sodium, Blood 130 mmol/L (136-145); Total Protein, Blood 5.8 g/dL (6.4-8.2)
--- NOTE | 2020-04-21 15:46 | NUR ---
SHIFT SUMMARY PATIENT MEDICATED X1 FOR PAIN AND X1 FOR COUGH. KPAD FOR COMFORT. PATIENT DENIES NAUSEA AND SHORTNESS OF BREATH. PATIENT MAINTAINING OXYGEN SATURATION ABOVE 92% ON HER BASELINE OF 4L/NC. PATIENT UP SBA TO BR. BOWEL CARE STARTED. PATIENT'S SISTER VISITED. PATIENT NAPPING MOST OF SHIFT.
[2020-04-21 22:18] LABS: International Normalized Ratio 3.96; Prothrombin Time Results 39.2 Sec (9.7-11.5)
--- NOTE | 2020-04-21 22:54 | NUR ---
PT C/O PAIN IN CENTER OR CHEST THAT RADIATES TO L. ARM THAT HAS BEEN ONGOING FOR MOST OF THE DAY. SENIOR SALES REPRESENTATIVE PHYSICIAN NOTIFIED. NEW ORDERS FOR EXTRA 1X DOSE OF FENTANYL AND LIDO PATCH. PER TELE, NSR AT 76. WILL CONTINUE TO MONITOR.
--- NOTE | 2020-04-22 01:06 | NUR ---
PT TRANSFERRED TO ROOM 333. REPORT GIVEN TO SYLVIE RICHARDS RN
--- NOTE | 2020-04-22 05:22 | NUR ---
ORDNANCE TECHNICIAN SUMMARY PT WAS TRANSFERED FROM RM 350 TO 333 AT 0045, I RECIEVED REPORT FROM EMMA Moran RN. AFTER TRANSFERING THE PT SHE HAD C/O PAIN IN HER CHEST SO TYLENOL WAS GIVEN WHICH RELIEVED SYMPTOMS. PT HAD BOUTS OF COUGHING WHICH PRODUCED THICK, BROWN SPUTUM SO SUCTION WAS PROVIDED AT BEDSIDE AND O2 WAS TITRATED TO 4L NC. PT IS AXO X4 AND PLEASANT/COOPERATIVE. PT IS CURRENTLY SLEEPING COMFORTABLY W CALL LIGHT WITHIN REACH.
[2020-04-22 05:51] LABS: International Normalized Ratio 3.63
[2020-04-22 06:09] LABS: Prothrombin Time Results 36.1 Sec (9.7-11.5)
--- NOTE | 2020-04-22 07:43 | NUR ---
ADVISED NO LABS ORDERED FOR THIS AM. H&H WAS LOW YESTERDAY. HE WILL CHECK CHART.
[2020-04-22 08:30] LABS: BASOPHILS ABSOLUTE AUTO 0.05 K/mm3 (0.00-0.23); BASOPHILS PERCENT AUTO 1 % (0-2); EOSINOPHILS ABSOLUTE AUTO 0.32 K/mm3 (0.00-0.68); EOSINOPHILS PERCENT AUTO 4 % (0-6); Hematocrit 23.9 % (33.0-51.0); Hemoglobin 7.6 g/dL (11.5-16.0); IMMATURE GRAN ABSOLUTE AUTO 0.09 K/mm3 (0.00-0.10); IMMATURE GRAN PERCENT AUTO 1 % (0-1); LYMPHOCYTES ABSOLUTE AUTO 0.44 K/mm3 (0.84-5.20); LYMPHOCYTES PERCENT AUTO 5 % (21-46); MONOCYTES ABSOLUTE AUTO 0.76 K/mm3 (0.16-1.47); MONOCYTES PERCENT AUTO 8 % (4-13); Mean Corpuscular HGB 29.5 pg (26.0-34.0); Mean Corpuscular HGB Conc 31.8 g/dL (31.5-36.5); Mean Corpuscular Volume 93 fL (80-100); Mean Platelet Volume 11.7 fL (9.1-12.4); NEUTROPHILS ABSOLUTE AUTO 7.34 K/mm3 (1.96-9.15); NEUTROPHILS PERCENT AUTO 82 % (41-73); Platelet Count 300 K/mm3 (150-400); RDW Coefficient Variation 14.4 % (11.7-14.2); Red Blood Cell Count 2.58 M/mm3 (3.80-5.20)
[2020-04-22] MEDS ORDERED: ACET325 PO (11:04)
[2020-04-22] MEDS ORDERED: ALPR.25 PO (11:05)
[2020-04-22] MEDS ORDERED: SENN187 PO (11:05)
[2020-04-22] MEDS ORDERED: HYDMOR2 PO (11:06)
[2020-04-22] MEDS ORDERED: GUAI600T33 PO (11:06)
--- NOTE | 2020-04-22 11:59 | NUR ---
REVIEW D'C WITH PATIENT. AWARE TO MEDICAL CARE MANAGER AND BRING HARD COPY TO PHARM. REVIEW MEDS HOW , HOW MUCH AND WHEN TO TAKE. AWARE NEEDS TO CALL MD FOR F/U APPT. DISCUSS PAIN MEDS AND DB AND C FOR FX RIBS WITH SPLINTING OF AREA. ANSWER ALL QUESTIONS. AWAITING HARD COPY THEN WILL BE D'C.
== END 2020-04-22 12:20 | disposition home or self-care (01) ==
LOC: ER 22:12 → ERHOLD 22:13 → MEDS 22:13 → ERHOLD 04-21 00:14 → MEDS 04-21 00:14 → ER 04-21 00:14 → MEDS 04-21 00:14 → ERHOLD 04-21 09:29 → MEDS 04-22 00:45
PROVIDERS: Emergency Medicine; Internal Medicine; Nurse Practitioner Acute Care; ADMIT Internal Medicine
DX: J96.21 Acute and chronic respiratory failure with hypoxia (principal); J18.9 Pneumonia, unspecified organism; F41.9 Anxiety disorder, unspecified; K59.00 Constipation, unspecified; I48.91 Unspecified atrial fibrillation; E66.01 Morbid (severe) obesity due to excess calories; D63.8 Anemia in other chronic diseases classified elsewhere; H40.9 Unspecified glaucoma; I21.3 ST elevation (STEMI) myocardial infarction of unspecified site; I50.43 Acute on chronic combined systolic (congestive) and diastolic (congestive) heart failure; I25.10 Atherosclerotic heart disease of native coronary artery without angina pectoris; E78.5 Hyperlipidemia, unspecified; K21.9 Gastro-esophageal reflux disease without esophagitis; I25.2 Old myocardial infarction; Z79.02 Long term (current) use of antithrombotics/antiplatelets; Z95.5 Presence of coronary angioplasty implant and graft; Z79.899 Other long term (current) drug therapy; Z79.01 Long term (current) use of anticoagulants; Z88.5 Allergy status to narcotic agent; Z88.8 Allergy status to other drugs, medicaments and biological substances; Z88.1 Allergy status to other antibiotic agents; Z91.041 Radiographic dye allergy status; Z87.891 Personal history of nicotine dependence; Z68.34 Body mass index [BMI] 34.0-34.9, adult; E87.1 Hypo-osmolality and hyponatremia
CPT/HCPCS: 0202U; 36415; 71045; 80053; 82272; 83605; 83880; 84145; 84484; 85025; 85610; 85730; 87040; 87070; 87205; 93005; 93010; 94640; 94667; 94760; 94761; 94762; 96365; 96367; 96375; 96376; 99285-25; A9270; A9270-GY; G0378; J0456; J0696; J1644; J1940; J2405; J3010; J7030; J7050

== ENCOUNTER 2020-04-25 09:22 | Inpatient (IN) | payer OTHER ==
[~2020-04-25] VITALS: Ht 167.6 cm; Wt 81.3 kg
[~2020-04-25 09:22] MED LIST changes: +ACET325 PO; +ALPR.25 PO; +HYDMOR2 PO; +SENN187 PO
[2020-04-25 10:06] LABS: BASOPHILS ABSOLUTE AUTO 0.06 K/mm3 (0.00-0.23); BASOPHILS PERCENT AUTO 1 % (0-2); EOSINOPHILS ABSOLUTE AUTO 0.08 K/mm3 (0.00-0.68); EOSINOPHILS PERCENT AUTO 1 % (0-6); Hemoglobin 8.9 g/dL (11.5-16.0); IMMATURE GRAN ABSOLUTE AUTO 0.08 K/mm3 (0.00-0.10); IMMATURE GRAN PERCENT AUTO 1 % (0-1); LYMPHOCYTES PERCENT AUTO 8 % (21-46); MONOCYTES ABSOLUTE AUTO 0.77 K/mm3 (0.16-1.47); MONOCYTES PERCENT AUTO 7 % (4-13); Mean Corpuscular HGB 29.4 pg (26.0-34.0); Mean Corpuscular HGB Conc 31.8 g/dL (31.5-36.5); Mean Corpuscular Volume 92 fL (80-100); Mean Platelet Volume 11.2 fL (9.1-12.4); NEUTROPHILS ABSOLUTE AUTO 9.91 K/mm3 (1.96-9.15); NEUTROPHILS PERCENT AUTO 84 % (41-73); Platelet Count 554 K/mm3 (150-400); RDW Standard Deviation 50.1 fL (35.1-46.3); Red Blood Cell Count 3.03 M/mm3 (3.80-5.20)
[2020-04-25 10:10] LABS: Calcium, Ionized (POC) 1.06 mmol/L (1.10-1.46); Chloride (POC) 99 mmol/L (98-108); Creatinine (POC) 0.3 mg/dL (0.6-1.0); Glucose (ISTAT POC) 149 mg/dL (70-99); Hemoglobin (POC) 9.2 g/dL (12.0-16.0); Potassium (POC) 4.1 mmol/L (3.5-5.5); Sodium (POC) 131 mmol/L (135-148); Total CO2 (POC) 21 mmol/L (21-32)
[2020-04-25 10:18] LABS: Alanine Aminotransfer (ALT/SGP 24 U/L (12-78); Albumin, Blood 2.9 g/dL (3.4-5.0); Albumin/Globulin Ratio 0.7 (0.8-1.8); Alk Phos 110 U/L (50-136); Anion Gap 9 mmol/L (6-16); Aspartate Aminotrans (AST/SGOT 22 U/L (12-37); Bilirubin, Total 0.9 mg/dL (0.1-1.0); Blood Urea Nitrogen 8 mg/dL (8-24); Bun/Creatinine Ratio 17.2 (12.0-20.0); CO2, Blood 25 mmol/L (21-32); Calcium, Blood 8.7 mg/dL (8.5-10.1); Chloride, Blood 100 mmol/L (98-108); Creatinine, Blood 0.47 mg/dL (0.40-1.00); Globulin, Blood 4.1 g/dL (2.2-4.0); Glomerular Filtration Rate >60 (60-); Glucose, Blood 113 mg/dL (70-99); Potassium, Blood 4.4 mmol/L (3.5-5.5); Sodium, Blood 134 mmol/L (136-145); Troponin I 0.019 ng/mL (0.000-0.040)
[2020-04-25 10:21] LABS: International Normalized Ratio 3.08; Prothrombin Time Results 30.9 Sec (9.7-11.5)
[2020-04-25 10:49] LABS: Source, Urine Catheter
[2020-04-25 10:53] LABS: Appearance, Urine Clear (Clear); Bilirubin, Urine Neg (Neg); Blood, Urine Neg (Neg); Color, Urine Yellow (P-Yellow); Glucose Qualitative, Urine Neg (Neg); Ketones, Urine 2+ (Neg); Leukocyte Esterase, Urine Neg (Neg); Nitrite, Urine Neg (Neg); Protein, Urine Neg (Neg); Urobilinogen, Urine NORM (Normal)
[2020-04-25 12:35] LABS: Percent Saturation 12.9 % (15.0-50.0)
--- NOTE | 2020-04-25 13:00 | NUR ---
PT ARRIVED TO PCU 12 VIA GURNEY FROM ED. PT IS ON BIPAP, V.S. STABLE, SHE IS AWAKE A/OX2, STATES SHE IS BREATHING SOME BETTER THAN WHEN SHE CAME IN, FOLLOWS COMMANDS WELL, LUNGS ARE CLEAR IN UPPER OLEARY, DIM FINE CRACKLES IN BASES, RESP EVEN ON BIPAP, HRIRR, TELE IN PLACE RUNNING AFIB PER MONITOR, RATE IS 120 TO 140'S, SEE STRIP, ANASARCA NOTED, PP+1, IV SITE IS CLEAR AND PATENT, INFUSING CARDIZEM GTT ORDERED, BTX4, ABD FLAT SOFT NONTENDER, JACOB CATH DRAINING YELLOW URINE, SKIN PALE, WITH SOME BRUISING, MAEW, SHAYY, CALL LIGHT IN REACH.
--- NOTE | 2020-04-25 15:26 | NUR ---
PT STARTED COMPLAINING OF CHEST PRESSURE, DID EKG, CALLED DR. MORALES, SHE ORDERED TO TX TO ICU AND GET CARDIOLOGY CONSULT, NOTIFIED [employer], CALLED CONSULT TO DR. YOUSSEF, DR. YOUSSEF ORDERED A NTG GTT, GAVE REPORT TO NANDO RN, TOOK PT VIA BED TO ICU WITH RT IN ATTENDENCE TO MNG BIPAP, SHE WAS MOVED TO ICU BED, TOOK HER BELONGINGS WITH HER. FAMILY WAS NOTIFIED BY FAST FOOD SERVER.
--- NOTE | 2020-04-25 15:28 | NUR ---
Notified Pt's next of praveen of transfer to ICU and update on Pt condition.
[2020-04-25 15:31] LABS: PCO2 Arterial 31.9 mmHg (35-45); PO2 Arterial 96.7 mmHg (80-100); pH Blood Arterial 7.49 (7.35-7.45)
--- NOTE | 2020-04-25 16:31 | NUR ---
Called pt being sent to icu. pt on bipap getting abg. Review with nursing pt history and wishes pt has polst on file. Family notified by nursing.
--- NOTE | 2020-04-25 17:00 | NUR ---
TRANSFER PT ARRIVED TO ICU AT 1515 ON BIPAP 12/ AND 60% FIO2 WITH SPO2 100%. PT AWAKE, ORIENTED. DR. RODRIGUEZ CAME BY AND GAVE ORDERS TO STOP DILTIAZEM AND SWITCH TO AMIODARONE AND START NITRO GTT. PT STATES SHE DIDN'T TAKE MORNING MEDS TODAY SO PO MEDS GIVEN AND PT TOOK THEM WITHOUT ANY SIGNS OF ASPIRATION. PT TOLERATED BREAK FROM BIPAP FOR ABOUT 10 MINUTES ON RA WHILE TAKING PILLS. FIO2 HAS BEEN TITRATED DOWN TO 30%. AFIB WITH RATE IN THE 140S UPON ARRIVAL, CURRENTLY 1TEENS WITH AMIO BOLUS DONE AND GTT INFUSING. PT'S CHEST PRESSURE WENT FROM 4 TO A [address]TT [address]. [address] MORALES NOTIFIED OF IONIZED CA AND ORDER RECEIVED FOR REPLACEMENT. PT'S BROTHER CALLED AND PT GAVE PERMISSION TO TALK TO HIM AND HER SISTER. NO OTHER REQUESTS AT THIS TIME. CONTINUING TO MONITOR.
--- NOTE | 2020-04-25 18:15 | NUR ---
PT HAD EPISODE OF CHEST PAIN 03/23. EPISODE WAS PRECEDED BY LIKELY ANXIETY EPISODE WHEN PT HAD SOME CONDENSATION IN HER BIPAP MASK. NITRO TITRATED UP AND PT HAD RELIEF FROM HER PAIN WITH INCREASE IN NITRO. PT'S HR WENT UP TO 130S-150S AFTER THE EPISODE AND HAS STAYED UP. SPOKE WITH DR. RODRIGUEZ AND RECEIVED ORDERS FOR ONE TIME DOSE OF ATIVAN AND REPEAT AMIODARONE BOLUS. CONTINUE TO MONITOR.
--- NOTE | 2020-04-25 19:53 | NUR ---
ASSUMED CARE NOTE: ASSUMED CARE OF PT AT 1900, RECEVIED REPORT FROM NANDO FABIAN. PT IS ALERT AND ORIENTED TO SELF, LOCATION AND FOLLOWING COMMANDS. PT IS ON BIPAP WITH SETTINGS AT 12/6, FIO2 AT 30%, SPO2 ABOVE 90% PT IN AFIB WITH HR BETWEEN 110-125. AMIO RUNNING AT 33.3ML/HR, NITRO AT 40MCG/MIN. PT C/O 10/21 CHEST PAIN. PT DENIES SOB/HEADACHE AT THIS TIME. PT C/O BURING TO IV SITE WHERE K+ IS RUNNING. VITALS STABLE. WILL CONTINUE TO MONITOR PT T/O SHIFT.
--- NOTE | 2020-04-26 01:06 | NUR ---
UPDATE: TURNED OFF NITRO DRIP DUE TO LOWERING SBP OF 80. PT STS SHE IS IN 0/0 CP AT THIS TIME. AFTER 15 MINTUES SBP ABOVE 100. WILL CONTINUE TO MONITOR PT T/O SHIFT.
--- NOTE | 2020-04-26 02:00 | NUR ---
UPDATE: PT C/O 5/10 CHEST PAIN, HR IN THE 160'S. PT RR IN THE HIGH 30'S. PT WAS ANXIOUS. NITRO WAS RESTARTED, CURRENTLY UP TO 20MCG/MIN. XANAX WAS ALSO GIVEN PER EMAR.
[2020-04-26 03:40] LABS: BASOPHILS ABSOLUTE AUTO 0.06 K/mm3 (0.00-0.23); BASOPHILS PERCENT AUTO 1 % (0-2); EOSINOPHILS ABSOLUTE AUTO 0.02 K/mm3 (0.00-0.68); EOSINOPHILS PERCENT AUTO 0 % (0-6); Hematocrit 24.8 % (33.0-51.0); Hemoglobin 8.1 g/dL (11.5-16.0); IMMATURE GRAN ABSOLUTE AUTO 0.07 K/mm3 (0.00-0.10); IMMATURE GRAN PERCENT AUTO 1 % (0-1); LYMPHOCYTES PERCENT AUTO 8 % (21-46); MONOCYTES ABSOLUTE AUTO 0.93 K/mm3 (0.16-1.47); MONOCYTES PERCENT AUTO 9 % (4-13); Mean Corpuscular HGB 29.9 pg (26.0-34.0); Mean Corpuscular HGB Conc 32.7 g/dL (31.5-36.5); Mean Corpuscular Volume 92 fL (80-100); NEUTROPHILS ABSOLUTE AUTO 8.56 K/mm3 (1.96-9.15); NEUTROPHILS PERCENT AUTO 82 % (41-73); Platelet Count 485 K/mm3 (150-400); RDW Coefficient Variation 15.2 % (11.7-14.2); RDW Standard Deviation 49.6 fL (35.1-46.3); Red Blood Cell Count 2.71 M/mm3 (3.80-5.20); White Blood Cell Count 10.44 K/mm3 (4.00-11.30)
[2020-04-26 03:54] LABS: International Normalized Ratio 2.96; Prothrombin Time Results 29.8 Sec (9.7-11.5)
[2020-04-26 03:59] LABS: Alanine Aminotransfer (ALT/SGP 17 U/L (12-78); Albumin, Blood 2.5 g/dL (3.4-5.0); Albumin/Globulin Ratio 0.7 (0.8-1.8); Alk Phos 98 U/L (50-136); Anion Gap 9 mmol/L (6-16); Aspartate Aminotrans (AST/SGOT 20 U/L (12-37); Bilirubin, Total 1.1 mg/dL (0.1-1.0); Blood Urea Nitrogen 6 mg/dL (8-24); Bun/Creatinine Ratio 12.5 (12.0-20.0); CO2, Blood 26 mmol/L (21-32); Calcium, Blood 8.3 mg/dL (8.5-10.1); Chloride, Blood 98 mmol/L (98-108); Creatinine, Blood 0.48 mg/dL (0.40-1.00); Globulin, Blood 3.6 g/dL (2.2-4.0); Glomerular Filtration Rate >60 (60-); Glucose, Blood 117 mg/dL (70-99); Magnesium, Blood 1.9 mg/dL (1.6-2.4); Sodium, Blood 133 mmol/L (136-145); Total Protein, Blood 6.1 g/dL (6.4-8.2)
--- NOTE | 2020-04-26 06:03 | NUR ---
SHIFT SUMMARY: PT CONTINUES TO BE ON BIPAP WITH SETTINGS AT 12/6, FiO2 OF 30%, SPO2 MAINTANING ABOVE 90% PT WAS ABLE TO TOLERATE 10 MINUTE BREAKS OFF BIPAP FOR ORAL CARE. PT CONTINUES TO BE IN AFIB WITH HR BETWEEN 110-120. WITH ANXIETY PT'S HR WILL ELEVATE INTO THE 160'S . AMIODARONE 0.5 MG/MIN, NITRO AT 10MCG/MIN. PT WAS GIVEN FENTYNAL ONCE THIS SHIFT, PER PT REQUESTS, STATING THAT IT DECRESES HER CHEST PAIN. PT WAS ALSO GIVEN XANAX THIS SHIFT FOR ANXIETY, GOOD EFFECT. PT ATTEMPTED TO HAVE A BM THIS SHIFT, NO SUCCESS. JACOB PATENT AND DRAINING TO GRAVITY, 1200ML OF URINE OUTPUT. PT HAS BEEN REPOSITIONED Q2HR, BED AT LOWEST LEVEL. WILL CONTINUE TO MONITOR PT UNTIL REPORT IS GIVEN TO ONCOMING SHIFT.
--- NOTE | 2020-04-26 11:47 | NUR ---
CARDIOVERSION DR. RDORIGUEZ BY ON ROUNDS AND DECIDED TO CARDIOVERT PT. PT WAS INFORMED AND GAVE CONSENT. REQUESTED DR. FERNANDEZ'S ASSISTANCE FOR SEDATION AND PROTECTION OF AIRWAY. DR. FERNANDEZ NOTIFIED AND RT NOTIFIED WELL. DR. FERNANDEZ ORDERED VERSED AND PROPOFOL FOR SEDATION. DR. RODRIGUEZ ORDERED ANOTHER AMIODARONE BOLUS TO BE GIVEN RIGHT BEFORE CARDIOVERSION. DR. FERNANDEZ AND DR. RODRIGUEZ BOTH DISCUSSED POSSIBLE RISKS AND PT'S CODE STATUS WITH PT. PALLIATIVE CARE INVOLVED IN DISCUSSION WELL. PALLIATIVE CARE NOTIFIED PT'S FAMILY AND PT WAS ABLE TO TALK WITH HER BROTHER BEFORE PROCEDURE. AT 1057 PT RECEIVED 2MG VERSED AND 30MG PROPOFOL WITH DR. FERNANDEZ AND RT MANAGING AIRWAY. 1058 PT WAS ADEQUATELY SEDATED AND RECEIVED A SYNCHRONIZED SHOCK OF 200J WITH FOLLOWING RHYTHM BEING SR RATE IN THE 60S AND AN OCCASIONAL PVC. PT HAS MAINTAINED SR SO FAR. SBP WAS IN THE 80S RIGHT AFTER CARDIOVERSION, BUT HAS COME UP WITHOUT MEDICATION TO THE 90S. MAP STAYED ABOVE 60 THE WHOLE TIME. PT IS WAKING UP AND FOLLOWING COMMANDS. DR. RODRIGUEZ GAVE ORDERS TO RUN AMIODARONE AT 1MG/MIN FOR 6 HOURS AGAIN AND THEN SWITCH TO THE 0.5MG/MIN AND TO CONTINUE IT THROUGH THE NIGHT WITH PLANS TO START PO IN THE MORNING.
--- NOTE | 2020-04-26 12:34 | NUR ---
REASSESSMENT PT WAS CARDIOVERTED THIS MORNING AND SO FAR HAS CONTINUED IN SR WITH RATE IN THE 70S WITH AN OCCASIONAL PVC. SHE HAS BEEN LARGELY BIPAP DEPENDENT STILL, ONLY TOLERATING 5-10 MINUTE BREAKS BEFORE SHE GETS SHORT OF BREATH. LUNGS ARE CLEAR, DIM IN THE BASES. SHE HAS BEEN TAKING A SMALL AMT OF PO FLUIDS WITH HER BREAKS FROM BIPAP. NO OTHER CHANGES FROM EARLIER ASSESSMENT. CONTINUING TO MONITOR.
--- NOTE | 2020-04-26 15:12 | NUR ---
called to icu pt needing cardioversion. Jennifer is knon to our department. She has been struggling with her laxmi since her passed. Pt is fearful because they reviewed possible need for recusitaion of ventilator after cardioverion. We dicussed it in depth and the animal therapist reviewed and she agreed. Theraputic time with pt supporting her. Called her brother and advised him of the plan of care. He will notify the rest of the family. Pt cardioverted and returned to sinus rythm pt on bipap support until recovers. Updated her brother twice after procedure and spoke with pt. Will have chaplian see her tomorrow. Pt expressed grief and sense of loss about her quality of life. Will assist her on plan of cre for future and transition to hospice if and when she needs it.
--- NOTE | 2020-04-26 16:36 | NUR ---
SHIFT SUMMARY PT WAS CARDIOVERTED TODAY AND HAS REMAINED IN SR SINCE, BUT OVERALL PT FEELS WORSE THIS EVENING THAN BEFORE SHE WAS CARDIOVERTED. SHE STATES HER BREATHING FEELS BAD WHEN SHE CAME INTO THE ED. HER RESPIRATORY RATE HAS BEEN IN THE 30S AND 40S AND SHE DOES APPEAR LABORED. SCHEDULED LASIX WAS GIVEN AT 1330 AND PT HAS HAD ONLY 30ML OUT FROM THAT. RT HAS BEEN IN AND ADJUSTED PRESSURES ON THE BIPAP WELL GIVING A BREATHING TX WITH LITTLE IMPROVEMENT. NITRO GTT RESTARTED TO SEE IF THAT HELPS. DR. RODRIGUEZ NOTIFIED OF THESE CHANGES AND ORDER RECEIVED FOR RESEARCH LEADER CONSULT. MESSAGE LEFT FOR DR. FERNANDEZ. PT REMAINS ALERT AND ORIENTED. LUNGS HAD CRACKLES EARLIER THIS AFTERNOON, BUT ARE CLEAR NOW. SBP IN THE 90S TO LOW 100S. CONTINUING TO MONITOR.
--- NOTE | 2020-04-26 19:15 | NUR ---
SHIFT ASSESSMENT REPORT RECEIVED FROM RUI LEBLANC. PT A&OX4. SITTING UPRIGHT IN BED, APPEARS TO BE DYSPNEIC ON BIPAP, 14/8 @ 40% WITH O2 SATS >90%. LS COARSE IN MIDS WITH EXPIRATORY WHEEZING. RESPIRATORY NOTIFIED, WILL BE DOWN TO ADMINISTER A BREATHING TREATMENT. WILL TRY AIRVO ONCE RT ARRIVES. IN BETWEEN NSR AND A-FIB ON THE CASHIER PARKING LOT. PT DENIES ANY CP AT THIS TIME. NITRO GTT @ 20MCG/MIN, AMIO GTT @0.5MG/MIN. JACOB CATH PATENT, DRAINING CLEAR, YELLOW URINE. WILL CONTINUE TO MONITOR.
--- NOTE | 2020-04-26 20:15 | NUR ---
ATTEMPTED AIRVO c INCREASED ANXIETY AND FEELING SHOB. PLACED BACK ON BIPAP. DR. FERNANDEZ IN TO SEE THE PT, PRESCRIBED PRECEDEX TO ANXIETY. STARTED AT 0.2MCG/KG/HR. PT APPEARS MORE RELAXED c PRECEDEX AND ABLE TO TOLERATE BIPAP.
[2020-04-27 03:19] LABS: BASOPHILS ABSOLUTE AUTO 0.07 K/mm3 (0.00-0.23); BASOPHILS PERCENT AUTO 1 % (0-2); EOSINOPHILS ABSOLUTE AUTO 0.01 K/mm3 (0.00-0.68); EOSINOPHILS PERCENT AUTO 0 % (0-6); Hematocrit 23.6 % (33.0-51.0); Hemoglobin 7.5 g/dL (11.5-16.0); IMMATURE GRAN ABSOLUTE AUTO 0.09 K/mm3 (0.00-0.10); IMMATURE GRAN PERCENT AUTO 1 % (0-1); LYMPHOCYTES ABSOLUTE AUTO 0.71 K/mm3 (0.84-5.20); LYMPHOCYTES PERCENT AUTO 6 % (21-46); MONOCYTES ABSOLUTE AUTO 0.88 K/mm3 (0.16-1.47); MONOCYTES PERCENT AUTO 7 % (4-13); Mean Corpuscular HGB Conc 31.8 g/dL (31.5-36.5); Mean Corpuscular Volume 91 fL (80-100); Mean Platelet Volume 10.7 fL (9.1-12.4); NEUTROPHILS ABSOLUTE AUTO 11.11 K/mm3 (1.96-9.15); NEUTROPHILS PERCENT AUTO 86 % (41-73); Platelet Count 469 K/mm3 (150-400); RDW Coefficient Variation 15.3 % (11.7-14.2); RDW Standard Deviation 50.6 fL (35.1-46.3); Red Blood Cell Count 2.59 M/mm3 (3.80-5.20); White Blood Cell Count 12.87 K/mm3 (4.00-11.30)
[2020-04-27 03:33] LABS: International Normalized Ratio 2.47; Prothrombin Time Results 25.1 Sec (9.7-11.5)
[2020-04-27 03:38] LABS: Alanine Aminotransfer (ALT/SGP 16 U/L (12-78); Albumin, Blood 2.5 g/dL (3.4-5.0); Albumin/Globulin Ratio 0.7 (0.8-1.8); Alk Phos 90 U/L (50-136); Anion Gap 11 mmol/L (6-16); Aspartate Aminotrans (AST/SGOT 19 U/L (12-37); Bilirubin, Total 1.2 mg/dL (0.1-1.0); Blood Urea Nitrogen 13 mg/dL (8-24); Bun/Creatinine Ratio 19.6 (12.0-20.0); CO2, Blood 24 mmol/L (21-32); Calcium, Blood 8.3 mg/dL (8.5-10.1); Chloride, Blood 95 mmol/L (98-108); Creatinine, Blood 0.66 mg/dL (0.40-1.00); Globulin, Blood 3.4 g/dL (2.2-4.0); Glomerular Filtration Rate >60 (60-); Glucose, Blood 139 mg/dL (70-99); Magnesium, Blood 1.9 mg/dL (1.6-2.4); Potassium, Blood 4.2 mmol/L (3.5-5.5); Sodium, Blood 130 mmol/L (136-145); Total Protein, Blood 5.9 g/dL (6.4-8.2)
--- NOTE | 2020-04-27 05:17 | NUR ---
SHIFT SUMMARY PT SLEEPING ON AND OFF THROUGHOUT THE NIGHT. HAD A FEW BOUTS OF ANXIETY. INCREASED THE PRECEDEX TO 0.3MCG/KG/HR. DURING ORAL CARE PT QUICKLY BECAME MORE DYSPNEIC AND O2 SATS DROPPED BELOW 88%. RT ATTEMPTED TO USE HUMIDIFIED AIR VIA BIPAP, PT FELT THOUGH SHE WAS SUFFOCATING AND REQUESTED US TO PLEASE NOT USE THE WARM, HUMIDIFIED AIR AGAIN. NOTE ON BIPAP MACHINE PER PT REQUEST. NITRO TITRATED OFF THROUGHOUT THE MORNING DUE TO HYPOTENSION AND DECREASED PAIN. REPORT TO BE GIVEN TO ONCOMING RN.
--- NOTE | 2020-04-27 08:45 | NUR ---
CARE ASSUMED ASSESSMENT COMPLETED, PT VERY ANXIOUS AND SOB AT THIS TIME, SKIN PALE AND CLAMMY, DIAPHORETIC. C/O L RIB PAIN, MEDICATED WITH FENTANYL PER ORDERS WITH LITTLE EFFECT. RR 40-50, LS COARSE T/O, PT HAS PRODUCTIVE COUGH, NO CRACKLES NOTED. BIPAP 12/8, FIO2 100%, SPO2 >90%. PRECEDEX 0.3, NITRO GTT 10MCG, AMIO GTT 0.5MG. HR 80'S SINUS, TITRATING MEDS TOLERATED BY BP. DR. MORALES AT BEDSIDE, NEW ORDERS, ROXANOL ADMINISTERED WITH GOOD RESULTS. PT'S RR NOW 33, SPO2 98%, PT RESTING WITH EYES CLOSED.
--- NOTE | 2020-04-27 10:28 | NUR ---
UPDATE PT RESPONDED WELL TO ROXANOL, RR 30, PT RESTING WITH EYES CLOSED. WOKEN UP FOR AM PILLS, TOOK AMIO BUT UNABLE TO TOLERATE MASK OFF LONG ENOUGH TO COMPLETE AM MEDS, RR INCREASED TO 40. REMAINING MEDS HELD FOR ASPIRATION RISK. FIO2 AT 60% AT THIS TIME, PT CONTINUES TO REST.
--- NOTE | 2020-04-27 13:01 | NUR ---
Pt resting in bed and wearing BIPAP. Pt responds appropriately to questions. Pt reports anxiety with dyspnea. She reports dyspnea has increased and is requesting medication. Pt is agreeable to current plan of care. Pt's sister Leonora at bedside. Engaged in therapeutic discussion regarding planning for the future. Discussed the possibility of Pt frequenting the hospital more often due to the condition of her heart. Educated on the importance of family discussions regarding goals of care as disease process takes its coarse. Pt and family express appreciation of visit. Spoke with Bedside RUI Franklin, discussed case and relayed request for Roxanol. Spoke with Dr Cosme and discussed case. Palliative Care will remain available for supportive visits.
--- NOTE | 2020-04-27 16:13 | NUR ---
Received call from Bedside RUI Nicole relaying Pt's sisters request to have further conversation. Arrived to Pt's room. Pt resting in bed and is wearing BIPAP. Sister Leonora requests to have conversation outside of room. Escorted Leonora to ICU hallway and engaged in therapeutic listening. 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 Continued therapeutic listening and answered questions related to hospice. Sister Leonora is requesting another meeting with herself and brother tomorrow to discuss option then further conversation with Pt. Spoke with with Bedside RUI Nicole and discussed family's plan. Left message with Caremanager Pina regarding family's concerns and plan for meeting. Plan: Meet with family tomorrow to discuss goals of care options then discuss with Pt.
--- NOTE | 2020-04-27 17:32 | NUR ---
Spiritual care note: I met with Mrs. Jade this morning. She appears quite frail and very weak. She awakens to voice, but was unable to communicate. She was on bipap and conversation difficult. she also did not appear to stay awake long enough for in-depth conversation. She remembered me from previous admission. Prayer for God's healing and Malina provided at bedside. I will remain available to pt and family.
--- NOTE | 2020-04-27 18:30 | NUR ---
END OF SHIFT PT UNABLE TO TOLERATE BEING OFF BIPAP MORE THAN BRIEFLY THIS SHIFT, DID NOT DO WELL TAKING 1800 PO MEDICATIONS, BECAME VERY SOB AND ANXIOUS AND HAD DIFFICUTLY SWALLOWING. PT MADE NPO. MEDICATED MULTIPLE TIMES WITH ROXANOL WITH GOOD RESULTS. LS REMAINED CLEAR THIS AFTERNOON AND EVENING, 400ML TEA COLORED URINE OUTPUT DESPITE BUMEX, PEDAL AND BUE EDEMA REMAIN UNCHANGED. UNABLE TO OBTAIN SPUTUM CX D/T NON PRODUCING COUGH. RR TODAY 30'S WHEN RESTING COMFORTABLY, UP TO 50'S WHEN ANXIOUS. BIPAP SETTINGS 07/23, 60% FIO2. RR 40, SPO2 92%, Vt HAVE BEEN 500-700 T/O SHIFT. HR 60-80'S SINUS. PT REMAINS VERY PALE, PPP, EXTREMS WARM, CAP REFILL WNL. BECOMES DIAPHORETIC WITH ANXIETY AND SOB, HAS DENIED CHEST PAIN THIS AFTERNOON. BP LABILE, NITRO AND AMIO GTTS REMAIN OFF. PRECEDEX 0.3MCG INFUSING. PT'S SISTER IN TO VISIT, HAD MULTIPLE CONVERSATIONS WITH PALLIATIVE CARE REGARDING PLAN OF CARE. PLAN FOR PALLIATIVE TO SPEAK WITH PT'S SISTER AND BROTHER AGAIN TOMORROW AND THEN DISCUSS PT'S WISHES WITH PT TO FORM A PLAN OF CARE. REPORT TO ONCOMING SHIFT.
--- NOTE | 2020-04-27 19:30 | NUR ---
SHIFT ASSESSMENT REPORT RECEIVED FROM RUI RUIZ. PT A&OX4. IN BED, APPEARS TO BE COMFORTABLE. RT IN WITH PT MAKING ADJUSTMENTS TO BIPAP MASK. BIPAP @ 12/10 @55%, PT TOLERATING WELL. RR 25-32, LS CLEAR UPPERS, DIMINISHED LOWERS. NSR ON THE ASSOCIATE PROFESSOR OF GEOGRAPHY, PULSE IN THE 60'S. PRECEDEX GTT @2MCG. PT BORDERLINE HYPOTENSIVE, WILL CONTINUE TO MONITOR CLOSELY. BT'S X 4, NO BM TODAY. JACOB CATH PATENT, CLOUDY TEA COLORED URINE. WILL ATTEMPT PO EVENING MEDS.
--- NOTE | 2020-04-27 21:31 | NUR ---
UPDATE PT TOLERATED PO AMIO AND XANAX c APPLE SAUCE FOLLOWED BY WATER. NO COUGHING, CHOKING, OR GAGGING. WAS NOT CONFIDENT IN ADMINSTERING THE OTHER PO MEDS.
[2020-04-28 03:35] LABS: International Normalized Ratio 2.91; Prothrombin Time Results 29.3 Sec (9.7-11.5)
--- NOTE | 2020-04-28 06:05 | NUR ---
SHIFT SUMMARY PT A&OX4. LS-FINE CRACKLES UPPERS, DIM LOWERS. BIPAP 07/23 @90% c O2 SATS>88% PTS MASK CHANGED OUT MULTIPLE TIMES WELL READJUSTED T/O THE NIGHT/ MORNING. PT RECV'D BREATHING TREATMENTS PER PRESCRIBED INTERVALS, WITH LITTLE RELIEF. NORMAL SINUS ON THE BODY WORKER. HYPOTENSIVE AT TIMES. MEDICATED c ROXANOL WHICH APPEARS TO ASSIST c ANXIETY/ AIR HUNGER AND PAIN. PRECEDEX CONTINUES @2MCG. POOR URINE OUTPUT, COLOR IS DARK NIKHIL.
[2020-04-28 06:17] LABS: BASOPHILS ABSOLUTE AUTO 0.06 K/mm3 (0.00-0.23); BASOPHILS PERCENT AUTO 0 % (0-2); EOSINOPHILS ABSOLUTE AUTO 0.15 K/mm3 (0.00-0.68); EOSINOPHILS PERCENT AUTO 1 % (0-6); Hematocrit 22.7 % (33.0-51.0); Hemoglobin 7.1 g/dL (11.5-16.0); IMMATURE GRAN ABSOLUTE AUTO 0.25 K/mm3 (0.00-0.10); IMMATURE GRAN PERCENT AUTO 1 % (0-1); LYMPHOCYTES ABSOLUTE AUTO 0.53 K/mm3 (0.84-5.20); LYMPHOCYTES PERCENT AUTO 3 % (21-46); MONOCYTES ABSOLUTE AUTO 0.67 K/mm3 (0.16-1.47); MONOCYTES PERCENT AUTO 4 % (4-13); Mean Corpuscular HGB Conc 31.3 g/dL (31.5-36.5); Mean Corpuscular Volume 93 fL (80-100); Mean Platelet Volume 11.1 fL (9.1-12.4); NEUTROPHILS PERCENT AUTO 91 % (41-73); Platelet Count 449 K/mm3 (150-400); RDW Coefficient Variation 15.5 % (11.7-14.2); RDW Standard Deviation 51.6 fL (35.1-46.3); Red Blood Cell Count 2.45 M/mm3 (3.80-5.20); White Blood Cell Count 17.96 K/mm3 (4.00-11.30)
[2020-04-28 06:40] LABS: Alanine Aminotransfer (ALT/SGP 15 U/L (12-78); Albumin, Blood 2.4 g/dL (3.4-5.0); Albumin/Globulin Ratio 0.7 (0.8-1.8); Alk Phos 101 U/L (50-136); Anion Gap 8 mmol/L (6-16); Aspartate Aminotrans (AST/SGOT 35 U/L (12-37); Bilirubin, Total 1.4 mg/dL (0.1-1.0); Blood Urea Nitrogen 23 mg/dL (8-24); Bun/Creatinine Ratio 28.8 (12.0-20.0); CO2, Blood 24 mmol/L (21-32); Calcium, Blood 8.6 mg/dL (8.5-10.1); Chloride, Blood 98 mmol/L (98-108); Globulin, Blood 3.6 g/dL (2.2-4.0); Glomerular Filtration Rate >60 (60-); Glucose, Blood 109 mg/dL (70-99); Magnesium, Blood 1.8 mg/dL (1.6-2.4); Phosphorus, Blood 4.4 mg/dL (2.5-4.9); Potassium, Blood 4.6 mmol/L (3.5-5.5); Sodium, Blood 130 mmol/L (136-145)
--- NOTE | 2020-04-28 08:00 | NUR ---
ASSUMED CARE OF PT AT 0700. REPORT FROM MICA/SHERMAN FABIAN. PT RESTING IN BED. OPENS EYES TO VERBAL STIMULI. ON BIPAP, 07/23 90%. LABORED, TACHYPNIC RESP. PT SPEAKING IN SHORT SENTANCES. C/O SOB. PT APPEARS FATIGUED. STATES "I DONT KNOW HOW LONG I CAN DO THIS." LUNGS COARSE THROUGHOUT, WORSE ON LEFT. PT PALE, COOL. ORAL CARE PROVIDED. PT DOES NOT TOLERATE BREAKS OF ANY LENGTH FROM BIPAP, INCREASED WOB AND DECREASED SATS. PT DNI/DNR. PRECEDEX INFUSING AT 0.2 MCG/KG/MIN. JACOB PATENT AND DRAINING TO GRAVITY. WILL CONTINUE TO MONITOR.
--- NOTE | 2020-04-28 10:00 | NUR ---
PALLATIVE CARE DISCUSSION c DR MCPHERSON, GENA RN, FRIEND AND KRYSTA LEON, AND PT REGARDING PROGNOSIS, COMFORT CARE. PT A&OX 3. ANSWERS QUESTIONS APPROPRIATELY. VERBALIZES UNDERSTANDING OF DISCUSSION AND PARTICIPATES APPROPRIATELY. EDWARD TO CALL FAMILY IN TO SEE PT. ANTICIPATE PT CHANGING STATUS TO COMFORT CARE AFTER VISITING c FAMILY
--- NOTE | 2020-04-28 12:40 | NUR ---
ALL FAMILY AT BEDSIDE. GENA FROM [facility], KAREN AT BEDSIDE. PT STATES SHE IS READY TO HAVE BIPAP REMOVED. PREMEDICATED FOR COMFORT. PT c ANXIETY AND AIR HUNGER ONCE BIPAP REMOVED. REPLACED BIPAP FOR COMFORT. CONTINUED TO MEDICATE FOR ANXIETY AND PAIN PER EMAR. ABLE TO MAKE PT COMFORTABLE AFTER SEVERAL DOSES OF ROXANOL AND ATIVAN. TOD 1237. ARRANGEMENTS MADE. ALL BELONGINGS OTHER THAN DENTURES SENT HOME c FAMILY.
--- NOTE | 2020-04-28 13:50 | NUR ---
Multiple visits today. Pt has decided to pursue comfort care. Pt reports having thought about this for a few days and states she is ready. Educated on comfort care philosophy. Pt's friend Julianne (POCynthia and MPOA) is at bedside. Pt reports plan to say good by to her family then will be ready to withraw care. Family arrives and offers love and support. Family is supportive of Pt's decision. Search Engine Optimization Consultant Kasey present to offer emotional and spiritual support. After visiting with friends and family Pt reports ready to D/C BIPAP. Medications offered for comfort prior to D/C BIPAP. Collaborated with Bedside RN Noemy regarding comfort medications. Additional medications offered throughout dying process. Pt achieves comfort and passes peacefully. Offered emotional support and condolences to family. Search Engine Optimization Consultant Kasey continues support and will obtain information regarding home preferences. Palliative Care will remain available.
--- NOTE | 2020-04-28 17:35 | NUR ---
Spiritual care note: Present with family and friends as pt said her goodbyes. I facilitated prayer at bedside. Stayed in room with pt's brother and sister in law. Provided gentle counselling psychologist to good effect. With excellent nursing care and attention, Faye passed peacefully.
== END 2020-04-28 12:37 ==
LOC: ER 09:22 → PCU 11:30 → ICUW 11:30 → PCU 13:05 → ICUW 15:04
PROVIDERS: Emergency Medicine; Internal Medicine Cardiovascular Disease; Internal Medicine Critical Care Medicine; ADMIT Internal Medicine
PROC: 5A09457 Assistance with Respiratory Ventilation, 24-96 Consecutive Hours, Continuous Positive Airway Pressure (ICD-10-PCS; 2020-04-25)
PROC: 5A2204Z Restoration of Cardiac Rhythm, Single (ICD-10-PCS; principal; 2020-04-26)
DX: I48.0 Paroxysmal atrial fibrillation (principal); J81.0 Acute pulmonary edema; I21.4 Non-ST elevation (NSTEMI) myocardial infarction; J18.9 Pneumonia, unspecified organism; J96.01 Acute respiratory failure with hypoxia; A41.9 Sepsis, unspecified organism; R65.20 Severe sepsis without septic shock; I50.31 Acute diastolic (congestive) heart failure; Z51.5 Encounter for palliative care; I25.10 Atherosclerotic heart disease of native coronary artery without angina pectoris; E78.5 Hyperlipidemia, unspecified; I25.2 Old myocardial infarction; K21.9 Gastro-esophageal reflux disease without esophagitis; Z87.891 Personal history of nicotine dependence; I34.0 Nonrheumatic mitral (valve) insufficiency; I27.20 Pulmonary hypertension, unspecified; I73.9 Peripheral vascular disease, unspecified; I49.01 Ventricular fibrillation; I77.9 Disorder of arteries and arterioles, unspecified
CPT/HCPCS: 31720; 36415; 36600; 51702; 71045; 80047; 80053; 81003; 82728; 82803; 83540; 83550; 83735; 83880; 84100; 84484; 85014; 85025; 85610; 92960; 93005; 93010; 94640; 94660; 96374-59; 96375-59; 96376-59; 99152; 99285-25; A9270-GY; J0282; J0610; J0692; J1885; J1940; J2060; J2250; J2270; J2704; J3010; J3370; J3480; J3490; J7040; J7060; P9041; U0002